=== PATIENT | female | born 1980 | race Caucasian/White ===

== ENCOUNTER 2021-04-08 09:37 | Outpatient (RCR) | payer OTHER, SELFPAY ==
[2021-04-01 10:55] VITALS: BP 100/51; PULSE 66
[2021-04-08 10:07] VITALS: BP 105/54; PULSE 74
== END 2021-05-20 07:54 | disposition home or self-care (01) ==
LOC: ANHOBOP 09:37
PROVIDERS: Visit Provider Student in an Organized Health Care Education/Training Program
DX: O09.513 Supervision of elderly primigravida, third trimester (principal); Z3A.32 32 weeks gestation of pregnancy; Z3A.33 33 weeks gestation of pregnancy
CPT/HCPCS: 59025

== ENCOUNTER 2021-05-15 09:26 | Outpatient (RCR) | payer OTHER, SELFPAY ==
[2021-04-15 10:39] VITALS: BP 120/59; PULSE 72
[2021-04-22 09:41] VITALS: BP 103/2; PULSE 72
[2021-04-29 09:50] VITALS: BP 112/67; PULSE 76
[2021-05-15 10:01] VITALS: BP 117/69; PULSE 84
== END 2021-05-20 07:54 | disposition home or self-care (01) ==
LOC: ANHOBOP 09:26
PROVIDERS: Visit Provider Student in an Organized Health Care Education/Training Program
DX: O09.513 Supervision of elderly primigravida, third trimester (principal); Z3A.34 34 weeks gestation of pregnancy; Z3A.35 35 weeks gestation of pregnancy; Z3A.36 36 weeks gestation of pregnancy; Z3A.38 38 weeks gestation of pregnancy
CPT/HCPCS: 59025

== ENCOUNTER 2021-05-18 07:51 | Outpatient (CLI) | payer OTHER, SELFPAY ==
[2021-05-18 08:05] LABS: Hematocrit 33.2 % (37.0-47.0); Hemoglobin 10.8 g/dL (12.0-15.0)
[2021-05-20 08:37] LABS: Rapid Plasma Reagin Non-Reactive (NonReactive)
[2021-05-20 11:29] LABS: Mean Corpuscular Hemoglobin 24.5 pg (26-34); Mean Corpuscular Volume 84.5 fl (80-100); Mean Platelet Volume 12.1 fl (7.4-10.4); Platelet Count Result 180 k/mm3 (150-375); Red Cell Distribution Width 16.9 % (11.5-14.5); White Blood Count 8.3 K/mm3 (4.5-10.0)
== END 2021-05-18 07:52 | disposition home or self-care (01) ==
LOC: ANHLAB 07:55
PROVIDERS: Visit Provider Student in an Organized Health Care Education/Training Program
DX: Z01.818 Encounter for other preprocedural examination (principal)
CPT/HCPCS: 36415; 85014; 85018; 85027; 86592; 86850; 86900; 86901

== ENCOUNTER 2021-05-20 08:25 | Inpatient (IN) | payer OTHER, SELFPAY ==
[2021-05-20] VITALS (61 sets, daily range): BP systolic 83–130; BP diastolic 34–88; PULSE 42–72; RESP 12–16; TEMP 36.1–36.4; O2SAT 94–99; BMI 40.0
--- NOTE | 2021-05-20 07:28 | PM.IMHP ---
H&P: HPI History of Present Illness Date/Time: 05/20/21 07:28 Chief Complaint: prior intrauterine at term Narrative: 40 yo who presents for repeat section. Pt has had 1 prior and desires repeat. Pt reports a history of wound infection after her last . Her was complicated by a history of GDM with normal GCT in this . also complicated by advanced maternal age. Review of Systems Cardiovascular: Cardiovascular: Denies chest pain, Denies leg edema, Denies palpitations, Denies dyspnea and Denies dyspnea on exertion Respiratory: Respiratory: Denies cough, Denies dyspnea and Denies dyspnea on exertion Gastrointestinal: Gastrointestinal: Denies abdominal pain, Denies constipation, Denies diarrhea, Denies nausea and Denies vomiting Genitourinary: Genitourinary: Denies hematuria, Denies urinary frequency, Denies dysuria, Denies pelvic pain, Denies urinary incontinence and Denies vaginal discharge Neurologic: Reports system reviewed and no additional complaints, except as documented Psychiatric: Psychiatric: Reports no additional psychiatric complaints Endocrine: Endocrine: Denies palpitations [facility] Family History Family History (Updated 05/02/21 @ 12:41 by Trish Becerra RN) Other No pertinent family history Social History Social History Substance use: never Gender identity (if verbalized by the patient): Female Spiritual care concerns: No Meds Home Medications and Allergies Home Medications Medication Instructions Recorded Confirmed Type PNV cmb#95-ferrous fumarate-FA 1 tablet PO DAILY 04/01/21 05/15/21 History [] calcium carbonate [Calcium 600] 600 mg PO DAILY 04/01/21 05/15/21 History ergocalciferol (vitamin D2) 1,250 mcg PO WEEKLY 04/01/21 05/15/21 History [Vitamin D2] ferrous sulfate 325 mg PO DAILY 04/01/21 05/15/21 History Allergies Allergy/AdvReac Type Severity Reaction Status Date / Time Penicillins Allergy Rash Verified 05/15/21 09:44 Exam Const: General: no acute distress Eyes: EOM: EOMs intact bilaterally Neck: Neck: supple Thyroid: thyroid normal Chest: Breast/axilla inspection: normal inspection of the breasts Breast/axilla palpation: normal palpation of the breasts, normal palpation of the axillae and no axillary lymphadenopathy Resp: Effort & Inspection: normal respiratory effort Auscultation: clear to auscultation bilaterally Cardio: Rate: regular rate Rhythm: regular rhythm GI: Inspection: non-distended GI Palp: Yes Soft to palpation, No Tenderness to palpation present (GI) and No Guarding due to palpation present (GI) Auscultation: normal bowel sounds : General: No bladder normal to palpation External Female Exam: normal external appearance Speculum Exam - Vagina: normal vaginal discharge and No vaginal bleeding Speculum Exam - Cervix: nontender Bimanual exam- vagina & uterus: No bladder normal to palpation and No Cervical tenderness present OB/external & speculum: No vaginal bleeding Skin: General skin exam: normal color and no rashes or lesions noted Neuro: Cognition (Neuro): normal cognition Speech: normal speech Extrem: General: normal to inspection and no edema Psych: Mental Status: mental status grossly normal Affect: normal affect Assessment and Plan Assessment and plan (1) Supervision of high risk , unspecified, third trimester: Code(s): O09.93 - Supervision of high risk , unspecified, third trimester Status: Acute Assessment and Plan: 40 yo Rh+ GBS neg plan for repeat (2) History of section complicating : Code(s): O34.219 - Maternal care for unspecified type scar from previous delivery Status: Acute Assessment and Plan: prior x1 h/o wound infection will plan for THEO dressing (3) Advanced maternal age (AMA) in :
--- NOTE | 2021-05-20 09:08 | LDADM ---
This patient, Mone Spencer, was admitted to Labor/Delivery/Recovery 119 on 05/20/21 at 08:25. Plans for labor, pain management and were discussed with patient. Patient/family oriented to hospital policies and general routines including ID bracelet, bed and alarms, visiting hours, pain management, procedures, bathroom and other care routines, personal items, smoking policy, room service/diet and guest tray routines, infant security routines, and visiting hours. Patient/Family are encouraged to report perceived risks to care and to ask questions if they do not understand what they are told or what they should do. See OBIX for further documentation.
--- NOTE | 2021-05-20 10:31 | WPDANESEPPF ---
Anes - Initial Pre Proc Eval Procedure: Operation Date: 05/20/21 12:00 Proposed Procedures p Repeat Section - Cristian Lozano MD Date/Time: 05/20/21 10:31 Surgeon: Cristian Lozano MD Pre Op Diagnosis: C Section Patient Data Age: 40 Gender: F Height: 1.7 m Weight: 116 kg Last Vital Signs Pulse 64 05/20/21 09:01 BP 103/43 L 05/20/21 09:01 Allergies Allergy/AdvReac Type Severity Reaction Status Date / Time Penicillins Allergy Rash Verified 05/15/21 09:44 Home Medications Medication Instructions Recorded Confirmed Type PNV cmb#95-ferrous fumarate-FA 1 tablet PO DAILY 04/01/21 05/15/21 History [] calcium carbonate [Calcium 600] 600 mg PO DAILY 04/01/21 05/15/21 History ergocalciferol (vitamin D2) 1,250 mcg PO WEEKLY 04/01/21 05/15/21 History [Vitamin D2] ferrous sulfate 325 mg PO DAILY 04/01/21 05/15/21 History Patient hx anesthesia problems: none Family hx anesthesia problems: none PMFSH Past Medical History Medical History (Updated 05/20/21 @ 10:31 by Mehdi Spencer MD) Advanced maternal age (AMA) in Obesity Family History Family History (Updated 05/02/21 @ 12:41 by Trish Becerra RN) Other No pertinent family history Social History Social History Smoking status: Never smoker Second hand tobacco smoke exposure: No Substance use: never Gender identity (if verbalized by the patient): Female Spiritual care concerns: No Anes - Eval Final PreProcedure Day of Procedure 05/20/21 10:31 Patient weight: morbidly obese Heart: regular rate and rhythm Lungs: clear to auscultation and normal air movement Airway: Mallampati scale class II Neurological: alert and oriented Last oral intake: >/= 8 hours ASA classification: III Emergent: no Anesthetic plan: proceed Anesthesia type and monitoring: regional spinal Informed Consent: The patient's anesthetic plan and its attendant risks and benefits were discussed with the patient/family/POA. Questions were solicited and answers provided to the satisfaction of the patient/family/POA.
--- NOTE | 2021-05-20 10:38 | WPDHPUPDATE1 ---
History and Physical Update Update Date/Time: 05/20/21 10:38 History and Physical has been reviewed, including an updated exam of the patient. There are NO changes in the patient's condition. Risks, benefits, and alternatives have been discussed and questions answered. Patient agrees to proceed with procedure.
[2021-05-20] MEDS: ceFAZolin 2 GM/D5W 50 ML 2 GM/50 ML BAG IVPB (10:43)
[2021-05-20] MEDS: KETOROLAC 30 MG/ML VIAL (*BKC) IV PUSH (12:00)
--- NOTE | 2021-05-20 12:03 | W.PM.PROC2 ---
Procedure Note - Detailed Date of Procedure 05/20/21 Pre-op Diagnosis prior C Section Post-op Diagnosis same Procedure Performed repeat low transverse section Surgeon Cristian Lozano MD Anesthesia spinal and epidural Description of Procedure The patient was taken to the operating room. A combined spinal epidural anesthesic was administered and found to be adequate at a t-10 level. The patient was placed in a supine position with a slight left lateral tilt. A sheehan catheter was placed with return of clear urine. A Bovie grounding pad was placed. Surgical prep was performed and surgical drapes were placed. A surgical time out was performed. A Pfannenstiel skin incision was then made with the scalpel and carried through to the underlying layer of fascia. The fascia was then incised in the midline and the incision was extended laterally with the Metcalf scissors. The superior aspect of the fascia was then grasped with the Renny clamps, elevated, and the underlying rectus muscles dissected off bluntly and sharply. Attention was then turned to the inferior aspect of this incision which, in a similar fashion, was grasped, tented up with the Renny clamps, and the rectus muscles dissected off both bluntly and sharply. The rectus muscles were then in the midline. The peritoneum was identified and entered bluntly. The peritoneal incision was then extended superiorly and inferiorly with good visualization of the bladder. The vesico-uterine serosa was identified and dissected to create a bladder flap. The bladder blade was reinserted. The uterus was inspected for rotation. A low-transverse uterine incision was made sharply with the scalpel and entry was made into the uterine cavity. An amniotomy was made and copious amounts of clear fluid were noted on return. The uterine incision was extended laterally bluntly. The bladder blade was removed and the fetus was delivered atraumatically. The nose and mouth were suctioned with a bulb syringe. The umbilical cord was clamped twice and cut. The was handed off to the waiting staff. At the time of the delivery, the had good color, tone and grimace. The cried with minimal stimulation. A second segment of umbilical cord was clamped and cut for cord blood gasses. Cord blood was collected for determination of the blood type and for direct Jacobsen. The placenta was delivered spontaneously without difficulty. The placenta appeared grossly normal and complete. The uterus was exteriorized and cleared of all clots and debris. The uterine incision was repaired using 0-monocryl suture in a running fashion. A second layer of 0 Monocryl suture was used in an imbricating fashion to obtain excellent hemostasis and uterine strength. The uterine closure was inspected for hemostasis. The posterior aspect of the uterus and the broad ligaments were inspected and the posterior cul-de-sac cleared of fluid and blood clots. The uterine closure was again inspected and found to be hemostatic. The uterus was returned to the abdominal cavity. The pericolic gutters were inspected and were cleared of all blood clots and debris. The uterine closure was then re inspected to ensure hemostasis as were all subfascial tissues. The peritoneum was closed using 3-0 vicryl in a running fashion. The rectus muscles were re-approximately with interrupted mattress sutures of 0-vicryl. The fascia was reapproximated with 0-vicryl in a running fashion. The subcutaneous tissue was irrigated and hemostasis achieved with electrocautery. It was reapproximated with 3-0 vicryl in a running fashion. The skin was closed with annabelle. A sterile THEO dressing was applied to the wound. The patient tolerated the procedure well. Sponge, lap and needle counts were correct times three. The patient was taken to recovery in stable condition and without anticipated complications. Estimated Blood Loss 480 Drains No Packing No Complications No imm
--- NOTE | 2021-05-20 12:08 | PM.OBPRVD ---
OB - Delivery Note Procedure Procedure: Procedures Operation Date: 05/20/21 10:30 <No data on this case meets the specified criteria> events: Previous Route of delivery: Quantitative Blood Loss (ml): 480 Baby Date of : 05/20/21 Weeks of gestation at delivery: 39 Infant gender: Male Weight (pounds): 7 Weight (ounces): 8 score one minute: 9 score five minutes: 9
[2021-05-20] MEDS: OXYTOCIN 30 UNITS/NS 500 ML 30 UNITS/500 ML BAG 125 UNITS IV CONT (12:32)
[2021-05-20] MEDS: ONDANSETRON INJ 4 MG/2 ML VIAL IV PUSH (14:19)
[2021-05-20] MEDS: DEXTROSE 5%/0.45% SOD CHL 1,000 ML 125 ML IV CONT (17:31)
--- NOTE | 2021-05-20 19:15 | OBPPTRN ---
1427 Patient transferred to post room #290 via stretcher. Support person present. Oriented to unit, room, information board, rooming in, admission packet and security measures. Patient verbalizes understanding.
[2021-05-20] MEDS: ACETAMINOPHEN 325 MG TABLET 650 MG PO (19:55)
[2021-05-21] VITALS: BP 102/59; PULSE 60; RESP 16; TEMP 36.1; O2SAT 99
[2021-05-21 05:47] VITALS: BP 99/50; PULSE 60; RESP 18; TEMP 36.3; O2SAT 97
[2021-05-21 05:59] LABS: Basophils Percent Auto 0.2 % (0.2-1.2); Eosinophils Absolute Auto 0.1 K/mm3 (0-0.3); Eosinophils Percent Auto 0.9 % (0-4.4); Hematocrit 29.8 % (37.0-47.0); Hemoglobin 9.2 g/dL (12.0-15.0); Immature Granulocyte Absolute 0.02 K/mm3 (0.00-0.031); Immature Granulocyte Percent A 0.2 % (0-0.5); Lymphocytes Absolute Auto 1.34 K/mm3 (0.9-3.2); Lymphocytes Percent Auto 15.8 % (18.3-44.2); Mean Corpuscular HGB Conc 30.9 g/dl (32-36); Mean Corpuscular Hemoglobin 24.4 pg (26-34); Mean Platelet Volume 10.8 fl (7.4-10.4); Monocytes Absolute Auto 0.8 K/mm3 (0.1-0.6); Monocytes Percent Auto 9.6 % (2.6-8.5); Neutrophils Absolute Auto 6.2 K/mm3 (1.3-6.7); Neutrophils Percent Auto 73.3 % (45.5-73.1); Platelet Count Result 199 k/mm3 (150-375); Red Blood Count 3.77 M/mm3 (4.2-5.4); Red Cell Distribution Width 16.3 % (11.5-14.5); White Blood Count 8.5 K/mm3 (4.5-10.0)
--- NOTE | 2021-05-21 07:54 | PM.OBPNVD ---
OB - PN: Subj Subjective Date/time seen: 05/21/21 07:55 Interval history: Patient doing well this AM. she is ambulating without difficulty. She is tolerating PO. She reports adequate pain control. Her bleeding is normal and she reports normal lochia. She denies fever, chills, N/V. She has not yet passed flatus. Patient comments: no complaints and pain well controlled; no flatus present OB - PN: Obj Data Labs CBC & Chem 7: 05/21/21 04:59 Labs: Laboratory Results - last 24 hr 05/21/21 04:59 WBC 8.5 RBC 3.77 L Hgb 9.2 L Hct 29.8 L MCV 79.0 L D MCH 24.4 L MCHC 30.9 L RDW 16.3 H Plt Count 199 MPV 10.8 H Immature Gran % (Auto) 0.2 Neut % (Auto) 73.3 H Lymph % (Auto) 15.8 L [place] % (Auto) 9.6 H Eos % (Auto) 0.9 Baso % (Auto) 0.2 Lymph # (Auto) 1.34 [place] # (Auto) 0.8 H Eos # (Auto) 0.1 Baso # (Auto) 0.0 Abs Immat Gran (auto) 0.02 Absolute Neuts (auto) 6.2 Absolute Nucleated RBC 0.0 Nucleated RBC % 0.0 OB - PN A/P Plan day: 1 Plan: routine care Comments: patient doing well this AM voiding spontaneously tolerating PO H/H 9. continue routine PP care plan for infant circumcision today, risks, benefits, alternatives discussed. consent obtained Time Spent With Patient Time: Total time spent is greater than 50% in coordination of care (as documented) at patient's floor/unit and/or counseling patient: Time with patient: less than 15 minutes Review of Systems Constitutional: Constitutional: Reports no additional constitutional complaints Cardiovascular: Cardiovascular: Reports no additional cardiovascular complaints Respiratory: Respiratory: Reports no additional respiratory complaints Gastrointestinal: Gastrointestinal: Reports no additional gastrointestinal complaints Genitourinary: Genitourinary: Reports no additional female genitourinary complaints Exam Const: General: comfortable and no acute distress Resp: Effort & Inspection: normal respiratory effort Auscultation: clear to auscultation bilaterally Cardio: Rate: regular rate GI: GI Palp: Yes Soft to palpation and Yes Tenderness to palpation present (GI) (appropriately tender around incision ) Auscultation: normal bowel sounds Other: fundus firm and below umbilicus Incision C/D/I Urinary Catheter: Urinary Catheter: urine clear Psych: Appearance: grossly normal Mental Status: mental status grossly normal Affect: normal affect
[2021-05-21 08:35] VITALS: BP 101/56; PULSE 56; RESP 16; TEMP 37; O2SAT 98
[2021-05-21] MEDS: DOCUSATE SODIUM 100 MG CAPSULE PO ×2 (08:52→15:09)
[2021-05-21] MEDS: POLYSACCHARIDE IRON COMPLEX 150 MG CAPSULE PO ×2 (08:52→15:08)
[2021-05-21] MEDS: MULTIVIT/MIN/PREN/FOL AC/IRON TABLET 1 TAB PO (08:52)
--- NOTE | 2021-05-21 09:21 | WPDANLDNPN2 ---
Anes-Prog Note L&D-Neuraxial Date/Time: 05/21/21 09:21 Neuraxial medications: intrathecal PF morphine Opiod-related complaints: none Patient feedback: Patient satisfied with post-operative pain management.
--- NOTE | 2021-05-21 09:21 | WPDANLDPN2 ---
Anes-Prog Note L&D Date/Time: 05/21/21 09:21 Comfortable throughout: section Neuraxial method: spinal Epidural/Spinal procedure site: clean & non-tender Neuro status: Neuro function grossly intact. Cardiovascular status: normal Respiratory status: normal Airway patency: baseline Mental status: baseline Post-Op hydration status: normal Vital Signs: Last Vital Signs Temp 36.3 C L 05/21/21 05:47 Pulse 60 05/21/21 05:47 Resp 18 05/21/21 05:47 BP 99/50 L 05/21/21 05:47 Pulse Ox 97 05/21/21 05:47 Pain score (VAS): 0 I/O: Intake & Output 05/20/21 05/21/21 05/21/21 23:59 07:59 15:59 Intake Total 460 Output Total 1050 Balance -590 Post-procedural complaints: none Patient feedback: Patient satisfied with anesthetic care.
--- NOTE | 2021-05-21 10:10 | PC.NURSE ---
Mother called out for assist with feeding, reporting was sleepy. Mother states has been waking eagerly. Re viewed circumcision may make sleepy. is able to freely thrust tongue past gum ridge and flange both lips. Skin is intact on both nipples, no redness and bruising noted. Reviewed infant feeding cues, frequencies, duration of feedings, feeding elimination flow sheet, and signs of adequate intake. Demonstrated stimulation techniques to wake for feeding. Assisted with to breast. Reviewed positioning/alignment in cross cradle, holding breast in ?U? hold and guided asymmetrical latch on. Discussed rational for each. Infant able to latch correctly. Reviewed signs of a correct latch, effective nursing and suck swallow ratio. nursed eagerly, with steady draws and frequent swallowing noted. Reviewed the difference of effective vs ineffective nursing. Suggested mother stimulate while feeding to increase stimulation, increase intake and to assist with maintaining deep latch. Infant was able to maintain latch without discomfort to mother. Demonstrated how to adjust latch more deeply while feeding if needed. . Nipple care reviewed of lanolin after feedings, warm compresses as needed.
--- NOTE | 2021-05-21 12:40 | PC.NURSE ---
Consult with pt., mother states infant has been for 2010 minutes. Reviewed feeding cues, frequencies, duration of feedings, feeding elimination flow sheet, and signs of adequate intake. Mother has in cradle position, latched deeply denying discomfort. Reviewed signs of a correct latch, effective nursing and suck swallow ratio. Infant nursed eagerly, with steady draws and frequent swallowing noted. Reviewed the difference of effective vs ineffective nursing. Suggested mother stimulate while feeding to increase stimulation, increase intake and to assist with maintaining deep latch. Infant was able to maintain latch without discomfort to mother. Demonstrated how to adjust latch more deeply while feeding. Nipple care reviewed of lanolin after feedings.
[2021-05-21] MEDS: IBUPROFEN 600 MG TABLET PO (15:08)
[2021-05-21 20:00] VITALS: BP 108/61; PULSE 80; RESP 18; TEMP 37.1; O2SAT 96
[2021-05-22] MEDS: ACETAMINOPHEN 325 MG TABLET 650 MG PO ×2 (03:26→09:36)
--- NOTE | 2021-05-22 07:32 | PM.OBDSVD ---
DS: Admitting Diagnosis Admitting Diagnosis prior section OB - DS: Summary OB Procedures : None OB Procedures Intrapartum: OB Procedures: : None Peripartum Data Infant Delivery Method: Section Procedures: Procedures Operation Date: 05/20/21 10:30 Actual Procedure Side Surgeon p Section Bilateral Cristian Lozano MD complications: none Status at Discharge Functional status at discharge: independent ambulation Overall status at discharge: patient is progressing back to baseline Time Spent with Patient Time attestation: Total time spent providing and/or coordinating discharge services: Time spent: Less than 30 minutes Exam Const: General: comfortable and no acute distress Resp: Effort & Inspection: normal respiratory effort Auscultation: clear to auscultation bilaterally Cardio: Rate: regular rate GI: Inspection: non-distended GI Palp: Yes Soft to palpation, No Firmness to palpation present (GI), Yes Tenderness to palpation present (GI) (mild tenderness over incision ) and No Guarding due to palpation present (GI) Auscultation: normal bowel sounds Psych: Appearance: grossly normal Mental Status: mental status grossly normal Discharge Plan Discharge Discharging Clinician: patience Patient Disposition: Home, Self-Care Activity: as tolerated and pelvic rest Diet: regular Discharge Instructions: call or return for temperature >100.4, bleeding >2 pads/hr for 2 hrs, pain not controlled with medications, signs/symptoms of mastitis Patient Instructions: Antibiotic Form, (DC) Stand Alone Forms: General Discharge Information Follow-up/Referrals: Cristian Lozano MD [Physician] - 1 Week Discharge Medications: New hydrocodone-acetaminophen 5-325 mg tablet 1 tablet PO Q6H PRN (Reason: pain) Qty: 28 RF: 0 acetaminophen [Mapap (acetaminophen)] 325 mg Tablet 650 mg PO Q6H PRN (Reason: Mild Pain (1-3)) Qty: 30 RF: 0 ibuprofen 600 mg Tablet 600 mg PO Q6H PRN (Reason: Cramping) Qty: 30 RF: 0 Continued calcium carbonate [Calcium 600] 600 mg calcium (1,500 mg) Tablet 600 mg PO DAILY RF: 0 ferrous sulfate 325 mg (65 mg iron) Tablet 325 mg PO DAILY RF: 0 ergocalciferol (vitamin D2) [Vitamin D2] 1,250 mcg (50,000 unit) Capsule 1,250 mcg PO WEEKLY RF: 0 PNV cmb#95-ferrous fumarate-FA [] 28 mg iron- 800 mcg Tablet 1 tablet PO DAILY RF: 0 Date of admission: 05/20/21 08:25 Primary Care Provider: PHYSICIAN,GERONTOLOGICAL NURSE PRACTITIONER Admitting Provider: Cristian Lozano Attending physician on admission: Cristian Lozano Condition: Stable
[2021-05-22 07:55] VITALS: PULSE 80; RESP 18; O2SAT 96
[2021-05-22 08:00] VITALS: BP 114/68; PULSE 58; RESP 16; TEMP 36.9; O2SAT 99
--- NOTE | 2021-05-22 09:00 | PC.NURSE ---
Observed mother is able to independently latch with appropriate positioning/alignment. She denies any nipple discomfort, is feeding as required and waking infant to feed if needed. has had at least 8 effective feedings in the past 24 hours, and is currently meeting outcomes for weight, output, jaundice and feeding frequencies. Mother states she feels confident to continue effective at home. Reviewed transition to breast milk, signs of adequate intake, and engorgement/relief. Instructed to call ICP if intake/output less than required. Reviewed regular medications mother is taking. Information provided per Marianela. Reviewed community resources on the [facility] website and in the Mom/Baby guide. Information on outpatient services provided. Mother has no further questions at this time.
[2021-05-22] MEDS: POLYSACCHARIDE IRON COMPLEX 150 MG CAPSULE PO (09:37)
[2021-05-22] MEDS: DOCUSATE SODIUM 100 MG CAPSULE PO (09:37)
[2021-05-22] MEDS: MULTIVIT/MIN/PREN/FOL AC/IRON TABLET 1 TAB PO (09:37)
--- NOTE | 2021-05-22 12:11 | PC.NURSE ---
6951-Patient viewed the discharge video Mother & Baby Care, The First Two Weeks . Patient was given the opportunity and encouraged to ask questions. Patient verbalized understanding of information shared and has been given the mother/baby guide for home reference.
[2021-05-24 11:38] VITALS: BP 127/70; PULSE 67; RESP 20; TEMP 37.4; O2SAT 99
== END 2021-05-22 11:35 | disposition home or self-care (01) | DRG 788 ==
LOC: ANHLDR 08:29 → ANHOB2 14:35
PROVIDERS: Admitting Provider Student in an Organized Health Care Education/Training Program; Visit Provider Student in an Organized Health Care Education/Training Program
PROC: 10D00Z1 Extraction of Products of Conception, Low, Open Approach (ICD-10-PCS; CPT 59514; principal; 2021-05-20 12:00)
DX: O34.211 Maternal care for low transverse scar from previous cesarean delivery (principal); Z37.0 Single live birth; Z3A.39 39 weeks gestation of pregnancy; O24.429 Gestational diabetes mellitus in childbirth, unspecified control; O99.214 Obesity complicating childbirth; E66.01 Morbid (severe) obesity due to excess calories
CPT/HCPCS: 36415; 85014; 85018; 85025; 85027; 86592; 86850; 86900; 86901; A9270; J0131; J0456; J0690; J1885; J2274; J2370; J2405; J2590

== ENCOUNTER 2023-10-06 12:24 | Emergency (ER) | payer BC, SELFPAY ==
--- NOTE | ~2023-10-06 | XR_ITS ---
XR finger 5th LT min 2V DATE: 10/06/2023 12:51 INDICATION: Jammed left fifth finger last night. Swelling. TECHNIQUE: 4 views COMPARISON: None FINDINGS: No fracture or dislocation, periosteal reaction or bone destruction. The joint spaces are p reserved. No remaining soft tissue foreign body or subcutaneous emphysema. IMPRESSION: Negative Reviewed, dictated and finalized at location L. WASHER IMPRESSION: Negative
--- NOTE | 2023-10-06 12:26 | ED.UPPEXIN ---
HPI - Extremity Injury (Upper) General Chief Complaint: Extremity Injury, Upper Stated Complaint: Injured Finger Time Seen by Provider: 10/06/23 12:59 Source: patient and RN notes reviewed Mode of arrival: ambulatory Limitations: no limitations History of Present Illness HPI narrative: 43-year-old female presents concern for pain and injury to the 5th digit of the left hand. Reports she was playing with her kids yesterday when she felt a sudden pain. Reports since then she has had mid digit pain, swelling, decreased flexion. Reports she has used tape which has helped MD complaint: injury to: left and finger Related Data Home Medications Medication Instructions Recorded Confirmed calcium carbonate 600 mg calcium 600 mg PO DAILY 04/01/21 05/15/21 (1,500 mg) tablet (Calcium) ergocalciferol (vitamin D2) 1,250 1,250 mcg PO WEEKLY 04/01/21 05/15/21 mcg (50,000 unit) capsule (Vitamin D2) ferrous sulfate 325 mg (65 mg 325 mg PO DAILY 04/01/21 05/15/21 iron) tablet vit no.95-ferrous 1 tablet PO DAILY 04/01/21 05/15/21 fumarate 28 mg-folic acid 800 mcg tablet () Allergies Allergy/AdvReac Type Severity Reaction Status Date / Time Penicillins Allergy Rash Verified 05/15/21 09:44 Review of Systems Review of Systems: CONSTITUTIONAL: Denies malaise, chills, sweats, or fever. SKIN: Denies rash or itching, open skin, laceration, abrasion, redness, warmth MUSCULOSKELETAL: Reports left 5th digit pain and swelling NEUROLOGIC: Denies numbness, weakness All systems reviewed & are unremarkable except as noted in HPI and below PMFSH Past Medical History Medical History (Updated 10/06/23 @ 13:11 by Luda Salter NP) Advanced maternal age (AMA) in Obesity Family History Family History (Updated 05/02/21 @ 12:41 by Trish Becerra RN) Other No pertinent family history Social History Social History Smoking status: Never smoker Second hand tobacco smoke exposure: No Substance use: never Gender identity (if verbalized by the patient): Female Spiritual care concerns: No Comments At time of signature, agree with nursing past medical, surgical, social and family history. There is no relevant family history pertinent to the presenting complaint Exam Narrative: GENERAL: Well-appearing, well-nourished, and in no acute distress. HEAD: Normocephalic EYES: PERRLA, conjunctivae clear NECK: Supple. CHEST: Speaks in full sentences. No respiratory distress. HEART: Regular rate and rhythm. Normal and equal peripheral pulses. EXTREMITIES: 5th digit left hand has grossly normal strength and sensation. Limited range of motion with flexion. No clubbing, cyanosis, or edema noted. Mid tenderness. Skin intact. Normal digital cascade with flexion of fingers, median, ulnar and radial nerve intact. Normal sensation of each side of finger. No scissoring. Normal thumb opposition. Good capillary refill and radial pulse. Distal capillary refill less than 3 seconds. Patient is right/left hand dominant SKIN: Warn, dry, intact, pink. No rash NEURO: Alert and oriented x3. PSYCH: Normal mood and affect Course Course Emergency Course: Patient is aware of diagnosis, understands and agrees to treatment plan. Anticipatory guidance given. Patient agrees to follow-up as directed and is aware of reasons to seek care at the emergency department. Portions of this record may have been created with voice recognition software Level of Care: Express Care Visit Vital Signs Vital signs: Reviewed. MDM - Extremity Injury (Upper) MDM Narrative Medical decision making narrative: Patients injury and pain is consistent with musculoskeletal etiology. No signs of neurological or vascular compromise on exam. Compartments and tissues are soft without signs of compartment syndrome. Pain is felt appropriate for further evaluation on an outpatient basis. Imaging Data My impression: Images reviewed,
[2023-10-06 12:37] VITALS: BP 112/85; PULSE 75; RESP 15; TEMP 36.6; O2SAT 100
== END 2023-10-06 13:14 | disposition home or self-care (01) ==
PROVIDERS: Emergency Provider Nurse Practitioner
DX: S63.617A Unspecified sprain of left little finger, initial encounter (principal); X58.XXXA Exposure to other specified factors, initial encounter
CPT/HCPCS: 29130; 73140; 99213; G0463

== ENCOUNTER 2024-01-06 18:13 | Emergency (ER) | payer BC, SELFPAY ==
--- NOTE | 2024-01-06 18:16 | ED.URI ---
HPI - URI/Sore Throat General Chief Complaint: Upper Respiratory Infection Stated Complaint: COUGH/FEVER/EARACHE/CHILLS/SORE THROAT Time Seen by Provider: 01/06/24 18:16 Source: patient Mode of arrival: ambulatory Limitations: no limitations History of Present Illness HPI Narrative: Mone is a 43-year-old female patient presenting to the clinic today with complaints of cough, fever, earache, chills, body aches, shortness of breath on exertion (going up stairs), diarrhea, and sore throat since Thursday. She reports fever was as high as 100.5 ? F. elicited complaint: fever, cough, sore throat, rhinorrhea and nasal congestion Related Data Home Medications Medication Instructions Recorded Confirmed calcium carbonate 600 mg calcium 600 mg PO DAILY 04/01/21 01/06/24 (1,500 mg) tablet (Calcium) ergocalciferol (vitamin D2) 1,250 1,250 mcg PO WEEKLY 04/01/21 01/06/24 mcg (50,000 unit) capsule (Vitamin D2) ferrous sulfate 325 mg (65 mg 325 mg PO DAILY 04/01/21 01/06/24 iron) tablet Allergies Allergy/AdvReac Type Severity Reaction Status Date / Time Penicillins Allergy Rash Verified 01/06/24 18:25 Review of Systems Review of Systems: Pertinent positives per HPI. Patient denies any rash, headache, visual changes, dizziness,chest pain, palpitations, nausea, vomiting, constipation, abdominal pain, or any urinary issues. PMFSH Past Medical History Medical History (Updated 01/06/24 @ 18:45 by Melo Juárez APRN) Advanced maternal age (AMA) in Obesity Family History Family History (Updated 05/02/21 @ 12:41 by Trish Becerra RN) Other No pertinent family history Social History Social History Smoking status: Never smoker Second hand tobacco smoke exposure: No Substance use: never Gender identity (if verbalized by the patient): Female Spiritual care concerns: No Comments At the time of my signature, I reviewed and agree with the nursing past medical, surgical, social, and family history. There is no relevant family history pertinent to the patient complaint. Exam Narrative: General: Well-developed, well nourished, in no apparent distress Head: Normocephalic, atraumatic Eyes: Pupils equally round and reactive to light bilaterally, EOM intact, sclera and conjunctive clear, no discharge, lids normal Ears: TMs intact and clear, ear canals clear, no drainage, grossly hearing normal. Nose: Nares patent, no discharge, no inflammation, no sinus tenderness. Mouth: Oral pharynx without lesions or masses, good dentition, MMM. Neck: Supple, trachea midline, no enlargement of anterior or posterior cervical nodes, no thyroid masses or goiter palpable. Cardio: Regular rate and rhythm, s1 and s2 normal, no murmur appreciated. Resp: Clear to auscultation bilaterally, no rhonchi, rales, wheezing or rubs Course Course Emergency Course: Portions of this record may have been created with voice recognition software. Level of Care: Express Care Visit Vital Signs Vital signs: Vital signs reviewed MDM - URI/Sore Throat MDM Narrative Medical decision making narrative: At the time of visit patient is resting comfortably on the exam table. Patient appears to be nontoxic. Labs: COVID, flu, and strep test was negative in the clinic today. We will send strep for culture Plan: I suspect patient has URI/pharyngitis/viral syndrome. Supportive measures were discussed with the patient and they voiced understanding discharge instructions and agrees to treatment plan. Return precautions reviewed Differential Diagnosis Differential diagnosis: Likely upper respiratory infection, otitis media, sinusitis, viral infection, bronchitis, influenza, pharyngitis and other (COVID) Discharge Plan Discharge Clinical Impression: Acute viral syndrome URI (upper respiratory infection) Qualifiers: URI type: unspecified URI Qualified Code(s): J06.9 - Acute upper respiratory infection,
[2024-01-06 18:19] VITALS: BP 126/66; PULSE 89; RESP 16; TEMP 37.6; O2SAT 100
== END 2024-01-06 18:47 | disposition home or self-care (01) ==
PROVIDERS: Emergency Provider Nurse Practitioner Family
DX: B34.9 Viral infection, unspecified (principal); J06.9 Acute upper respiratory infection, unspecified; J02.9 Acute pharyngitis, unspecified; Z20.822 Contact with and (suspected) exposure to COVID-19; E66.9 Obesity, unspecified; Z68.37 Body mass index [BMI] 37.0-37.9, adult
CPT/HCPCS: 87081; 87426; 87804; 87880; 99213; G0463

== ENCOUNTER 2025-05-09 14:16 | Outpatient (CLI) | payer BC, SELFPAY ==
--- NOTE | ~2025-05-09 | MM_ITS ---
EXAMINATION: MM screening jannet BI w rebekah HISTORY: Screening TECHNIQUE: Craniocaudal and mediolateral oblique 3-D tomosynthesis images were obtained and synthetic 2-D images were generated. CAD analysis was submitted and interpreted. COMPARISON: Baseline. BREAST PARENCHYMAL COMPOSITION: There are scattered areas of fibroglandular density. FINDINGS: There is no evidence of suspicious mass, calcification, or architectural distortion to sug gest malignancy in either breast. IMPRESSION: 1. No mammographic evidence of malignancy. 2. Recommend routine screening mammography in one year. BI-RADS Category 1: Negative Reviewed, dictated and finalized at location B.
== END 2025-05-09 14:17 | disposition home or self-care (01) ==
LOC: ANHIMG 14:18
PROVIDERS: Visit Provider Obstetrics & Gynecology
DX: Z12.31 Encounter for screening mammogram for malignant neoplasm of breast (principal)
CPT/HCPCS: 77063; 77067

== ENCOUNTER 2025-08-25 12:17 | Emergency (ER) | payer BC, SELFPAY ==
[2025-08-25] VITALS (18 sets, daily range): BP systolic 100–136; BP diastolic 48–81; PULSE 41–97; RESP 13–25; TEMP 36.6–36.9; O2SAT 97–100
--- NOTE | ~2025-08-25 | XR_ITS ---
EXAMINATION: XR chest 1V portable COMPARISON: No comparisons available. HISTORY: syncope FINDINGS: The lungs are clear, no effusion. No pneumothorax. Heart is normal size. Mediastinal and hilar contours are within normal limits. Bony thorax no acute abnormality. Miscellaneous: None Impression: No acute cardiopulmonary abnormality. Reviewed, dictated and finalized at location P. MS ADJUSTOR Impression: No acute cardiopulmonary abnormality.
--- OUTSIDE RECORDS SUMMARY | 2025-08-25 07:30 | XMS_ITS | Encounter Summary ---
Author Organization [facility] Healthcare Address [address] [place] [address] Care Team Providers Care Signal Maintainer Helper Name Role Phone Linette Cummings MD Primary Care Provider [phone] Reason for Visit * Reason Comments Flu Symptoms Spent all night Wedn esday night heaving, she now has cold sweats, left ear pain, very tired, unknown fever. Encounter Details Date Type Department Care Team (Late Contact Info) Description 08/25/2025 7:30 AM COMPOUNDING ASSISTANT Telemedicine [facility] Primary Care at [address] [address] Linette Cummings MD [address] [place] [address] [address] [place] [address] Upper respiratory infection, viral (Primary Dx) Social History Tobacco Use Types Packs/Day Years Used Date Smoking Tobacco: Never Smokeless Tobacco: Never Tobacco Cessation:Counseling Given: Not Answered Alcohol Use Standard Drinks/Week Comments Yes 0 (1 standard drink = 0.6 oz pur e alcohol) PHQ-2 Answer Date Recorded PHQ-2 Total Score (If total score is 3 or more points, staff should administer the PHQ-9) 0 08/23/2025 PHQ-9 Answer Date Recorded PHQ-9 Total Score 0 08/23/2025 AUDIT-C Answer Date Recorded Q1: How often do you have a drink containing alc ohol? Monthly or less 07/21/2025 Q2: How many drinks containi ng alcohol do you have on a typical day when you are drinking? 1 or 2 07/21/2025 Q3: How often do you have si x or more drinks on one occasion? Never 07/21/2025 Personal Safety Answer Date Recorded Have you ever been in or are you currently in a harmful physical or emotional relationship or is someone making you feel afraid or unsafe? Denies 07/21/2025 Comments Unknown Sex and Gender Information Value Date Recorded Sex Assigned at Not on file Legal Sex Female 11:30 AM CDT Gender Identity Not on file Sexual Orientation Not on file documented as of this encounter Last Filed Vital Signs Vital Sign Reading Time Taken Comments Blood Pressure - - Pulse - - Temperature - - Respiratory Rate - - Oxygen Saturation - - Inhaled Oxygen Concentration - - Weight 104.8 kg (231 lb) 08/25/2025 7:27 AM COMPOUNDING ASSISTANT Height 170.2 cm (5' 7) 08/25/2025 7:27 AM COMPOUNDING ASSISTANT Body Mass Index 36.18 08/25/2025 7:27 AM COMPOUNDING ASSISTANT documented in this encounter Progress Notes * Linette Cummings MD - 08/25/2025 7:30 AM CST Images from the original note were not included. Subjective/Objective Patient ID: Mone Spencer is a 44 y.o. female. Chief Complaint Chief Complaint Patient presents with Flu Symptoms Spent all night Thursday night heaving, she now has cold sweats, left ear pain, very tired, unknown fever. This was a telemedicine visit with Mone Spencer alone which took place via real-time video connection. During the visit, I was located in the office and the patient was located at work in the state [facility]. The patient visit started at 7:30 AM and ended at 7:44 AM. My total encounter time on 08/25/2025 was 14 minutes which was spent in the activities documented in the note. This includes time spent prior to the visit and after the visit in direct care of the patient. This time does not include time spent in any separately reportable services. I have explained the option of participating in a telemedicine visit to the patient. After being given an opportunity to ask questions about and discuss this type of visit, the patient verbally consented to proceeding with the telemedicine visit. The patient understands that this service replaces an office visit and they may be billed and/or responsible for any applicable copayments. A guest was not included in this video visit. HPI Mone is a 44 yo female with complaint of worsening flu like symptoms. Her symptoms started on Thursday and progressively getting worse. On Thursday patient reported tested for influenza and COVID yayolts came back negative. Yesterday patient reports unable to keep food or fluid down but today she is able to sip on apple juice and sprite. Patient reports chills, body aches, dry heaving, left ear pain, fatigue and ensure fever. Patient reports no sick contacts around her. Past Medical History: Diagnosis Date History of chicken pox PONV (postoperative nausea and vomiting) Past Surgical History: Procedure Laterality Date SECTION 2019 SECTION 2020 SPINAL FUSION 2018 Outpatient Encounter Medications as of 08/25/2025 Medication Sig Dispense Refill ondansetron ODT (ZOFRAN-ODT) 8 mg disintegrating tablet Take 1 tablet (8 mg total) by mouth every 12 (twelve) hours as needed for nausea or vomiting for up to 14 days 28 tablet 0 ferrous sulfate 325 mg (65 mg of elemental iron) tablet Take 1 tablet (325 mg total) by mouth dailywith breakfast (Patient not taking: Reported on 08/25/2025) 30 tablet 11 multivitamin tablet Take 1 tablet by mouth (Patient not taking: Reported on 08/25/2025) No facility-administered encounter medications on file as of 08/25/2025. Allergies as of 08/25/2025 - Reviewed 08/25/2025 Allergen Reaction Noted Penicillins Rash 07/30/2015 Social History Tobacco Use Smoking status: Never Smokeless tobacco: Never Substance and Sexual Activity Drug use: Never Sexual activity: Yes Partners: Male Alcohol Use: Not At Risk (07/21/2025) AUDIT-C Frequency of Alcohol Consumption: Monthly or less Average Number of Drinks: 1 or 2 Frequency of Binge Drinking: Never ROS negative other that what is noted in HPI. Ht 170.2 cm (5' 7) Wt 104.8 kg (231 lb) BMI 36.18 kg/m?? Physical Exam Video visit Assessment & Plan Upper respiratory infection, viral Acute, ongoing. On Thursday COVID and flu tests are negative Zofran not providing relief of nausea. Discussed with patient that antibiotics are not indicated. Educate patient on self-limited nature of URI and lasting up to 2 weeks. Recommended good hand hygiene, proper hydration and rest. Recommend Tylenol/ibuprofen as needed for discomfort Follow-up as needed. Linette Cummings MD Family Medicine [facility] Primary Care 08/25/2025 OUNDING ASSISTANT documented in this encounter Plan of Treatment Not on file documented as of this encounter Visit Diagnoses Diagnosis Upper respiratory infection, viral- Primary documented in this encounter Care Teams Signal Maintainer Helper Relationship Specialty Start Date End Date Linette Cummings MD [id number] [address] PCP - General Family Medicine 07/04/25 documented as of this encounter
--- OUTSIDE RECORDS SUMMARY | 2025-08-25 07:30 | XMS_ITS | Encounter Summary ---
Author Organization [facility] Healthcare Address [address] [place] [address] Care Team Providers Care Content Designer Name Role Phone Linette Cummings MD Primary Care Provider [phone] Reason for Visit * Reason Comments Flu Symptoms Spent all night Wedn esday night heaving, she now has cold sweats, left ear pain, very tired, unknown fever. Encounter Details Date Type Department Care Team (Late Contact Info) Description 08/25/2025 7:30 AM INSTRUMENTATION ENGINEER Telemedicine [facility] Primary Care at [address] [address] Linette Cummings MD [address] [place] [address] [address] [place] [address] Upper respiratory infection, viral (Primary [...] 104.8 kg (231 lb) 08/25/2025 7:27 AM INSTRUMENTATION ENGINEER Height 170.2 cm (5' 7) 08/25/2025 7:27 AM INSTRUMENTATION ENGINEER Body Mass Index 36.18 08/25/2025 7:27 AM INSTRUMENTATION ENGINEER documented in this encounter Progress Notes * [...] was located at work in the state [facility]. The patient visit started at 7:30 AM [...] as needed. Linette Cummings MD Family Medicine [facility] Primary Care 08/25/2025 RUMENTATION ENGINEER documented in this encounter Plan of Treatment Not on file documented as of this encounter Visit Diagnoses Diagnosis Upper respiratory infection, viral- Primary documented in this encounter Care Teams Content Designer Relationship Specialty Start Date End Date Linette Cummings MD [address] [address] PCP - General Family Medicine 07/04/25 documented as of this encounter
--- OUTSIDE RECORDS SUMMARY | 2025-08-25 12:20 | XMS_ITS | Encounter Summary ---
Author Organization [facility] Healthcare Address [address] [place] [address] Care Team Providers Care Track Announcer Name Role Phone Linette Cummings MD Primary Care Provider [phone] Encounter Details Date Type Department Care Team (Late st Contact Info) Description 07/10/2025 Results Follow-Up [facility] Primary Care at [address] [address] Linette Cummings MD [address] [place] [address] [address] [place] [address] Iron profile w/ IBC, Folate, Vitamin B12 Social History Tobacco Use Types Packs/Day Years Used Date Smoking Tobacco: Never Smokeless Tobacco: Never Alcohol Use Standard Drinks/Week Comments Yes 0 (1 standard drink = 0.6 oz pur e alcohol) PHQ-2 Answer Date Recorded PHQ-2 Total Score (If total score is 3 or more points, staff should administer the PHQ-9) 0 07/04/2025 PHQ-9 Answer Date Recorded PHQ-9 Total Score 0 07/04/2025 AUDIT-C Answer Date Recorded Q1: How often do you have a drink containing alc ohol? Monthly or less 07/04/2025 Q2: How many drinks containi ng alcohol do you have on a typical day when you are drinking? 1 or 2 07/04/2025 Q3: How often do you have si x or more drinks on one occasion? Never 07/04/2025 Comments Unknown Sex and Gender Information Value Date Recorded Sex Assigned at Not on file Legal Sex Female 11:30 AM CDT Gender Identity Not on file Sexual Orientation Not on file documented as of this encounter Ordered Prescriptions Prescription Sig Dispense Quantity Refills Last Filled Start Date End Date ferrous sulfate 325 mg (65 mg of elemental iron) tabletIndications: Iron Deficiency Anemia Take 1 tablet (325 mg total) by mouth daily with breakfast 30 tablet 11 07/10/2025 documented in this encounter Plan of Treatment Not on file documented as of this encounter Visit Diagnoses Not on filedocumented in this encounter Care Teams Track Announcer Relationship Specialty Start Date End Date Linette Cummings MD [address] [address] PCP - General Family Medicine 07/04/25 documented as of this encounter
--- OUTSIDE RECORDS SUMMARY | 2025-08-25 12:20 | XMS_ITS | Clinical Summary ---
Author Organization [address] Address [address] [place] [id number] Care Team Providers Care Sod Farmer Name Role Phone Linette Cummings MD Primary Care Provider [phone] Allergies Active Allergy Reactions Criticality Noted Date Comments Penicillins Rash Medium 07/30/2015 Medications multivitamin tabletIndications: Vitamin Deficiency Prevention Take 1 tablet by mouth Active ferrous sulfate 325 mg (65 mg of elemental iron) tabletIndications: Iron Deficiency Anemia Take 1 tablet (325 mg total) by mouth daily with breakfast 30 tablet 11 07/10/20 25 026 Active Additional Information Patient not taking.Reported on 08/25/2025 ondansetron ODT (ZOFRAN-ODT) 8 mg disintegrating tabletIndications: Nausea Take 1 tablet (8 mg total) by mouth every 12 (twelve) hours as needed for nausea or vomiting for up to 14 days 28 tablet 08/23/20 25 025 Active ondansetron (ZOFRAN) 4 mg tabletIndications: Nausea and vomiting, unspecified vomiting type Take 1 tablet (4 mg) total 30 minutes before starting colonoscopy prep. Use the 2nd tablet as needed for nausea and vomiting. 2 tablet 07/04/20 25 025 Discontin ued(Thera py completed ) Active Problems No known active problems Resolved Problems Problem Noted Date Diagnosed Date Resolved Date Encounter for screening colonoscopy 07/04/2025 08/23/2025 Encounters Date Type Department Care Team Description 08/25/2025 7:30 AM REGISTERED NURSE MIDWIFE Telemedicine [facility] Primary Care at [address] [phone] Linette Cummings MD Upper respiratory infection, viral (Primary Dx) 08/23/2025 7:30 AM REGISTERED NURSE MIDWIFE Office Visit [facility] Primary Care at [address] [phone] Linette Cummings MD Nausea and vomiting, unspecified vomiting type (Primary Dx); Class 2 obesity due to excess calories without serious comorbidity with body mass index (BMI) of 36.0 to 36.9 in adult 07/21/2025 9:30 AM CDT - 07/21/2025 10:00 AM CDT Surgery [address] [address] Andrew Avila MD [facility] 07/21/2025 9:22 AM CDT Anesthesia Event [address] [address] Andrew Avila MD Fitterer, Morgan Shelly [facility] 07/21/2025 8:17 AM CDT - 07/21/2025 10:25 AM CDT Hospital Encounter [address] [address] Andrew Avila MD Discharge Disposition: Discharge to home or self care 07/10/2025 Results Follow-Up [facility] Primary Care at [address] [phone] Linette Cummings MD Iron profile w/ IBC, Folate, Vitamin B12 07/07/2025 7:50 AM CDT Lab [address] [address] Anemia, unspecified type 07/06/2025 Results Follow-Up [facility] Primary Care at [address] [phone] Linette Cummings MD Comprehensive metabolic panel, Lipid panel, Hemoglobin A1c, Additional followed-up results: 8 07/04/2025 8:10 AM CDT Lab [address] [address] Annual physical exam; Need for hepatitis B screening test; Need for hepatitis C screening test 07/04/2025 7:30 AM CDT Office Visit [facility] Primary Care at [address] [phone] Linette Cummings MD Annual physical exam (Primary Dx); Need for hepatitis C screening test; Need for hepatitis B screening test; Colon cancer screening 07/04/2025 Orders Only [facility] Gastroenterology at [address] [place] [address] Andrew Avila MD Nausea and vomiting, unspecified vomiting type (Primary Dx); Encounter for screening colonoscopy 07/04/2025 Telephone [facility] Primary Care at [address] [phone] Herbert Obrien CNA from Last 3 Months Immunizations Immunization Administration Dates Next Due Influenza, Quadrivalent, Spl it, Preservative Free, Intramuscular 09/30/2021,08/03/2020 Influenza, Unspecified 08/23/2025(Deferr ed: Patient Refused),07/05/2024(Deferred: Patient Refused) Tdap 03/06/2021 Surgical History Surgery Date Site/Laterality Comments SECTION 10/05/2019 - 10/04/2020 SPINAL FUSION 10/05/2018 - 10/04/2019 SECTION 10/05/2020 - 10/04/2021 Medical History Medical History Date Comments History of chicken pox PONV (postoperative nausea and vomiting) Family History Medical History Relation Name Comments Diverticulitis Father Hypertension Father prediabetes Father Relation Name Status Comments Father Alive Mother Alive Social History Tobacco Use Types Packs/Day Years [...] on file Sexual Orientation Not on file Last Filed Vital Signs Vital Sign Reading Time Taken Comments Blood Pressure 112/68 08/23/2025 7:33 AM REGISTERED NURSE MIDWIFE Pulse 80 08/23/2025 7:33 AM REGISTERED NURSE MIDWIFE Temperature 36.6 C (97.8 F) 08/23/2025 7:33 AM REGISTERED NURSE MIDWIFE Respiratory Rate 16 08/23/2025 7:33 AM REGISTERED NURSE MIDWIFE Oxygen Saturation 99% 08/23/2025 7:33 AM REGISTERED NURSE MIDWIFE Inhaled Oxygen Concentration - - Weight 104.8 kg (231 lb) 08/25/2025 7:27 AM REGISTERED NURSE MIDWIFE Height 170.2 cm (5' 7) 08/25/2025 7:27 AM REGISTERED NURSE MIDWIFE Body Mass Index 36.18 08/25/2025 7:27 AM REGISTERED NURSE MIDWIFE Plan of Treatment Health Maintenance Due Date Last Done Comments Regular Well Visit/Exam 18-64 1999 Covid-19 Vaccine ( season) 2025 09/30/2021, 12/11/2020 Influenza Vaccine (#1) 2025 09/30/2021, 2019 Cervical Cancer Screening 02/15/2026 02/15/2025, 10/2024 Breast Cancer Screening-Mammogram 05/09/2026 05/09/2025, 04/04/2025 HPV Vaccines (1 - 3-dose SCDM series) 07/04/2026 Postponed from 2008 (Patient declined, but will receive in the future) Depression Screening 08/23/2026 08/23/2025, 08/23/2025, 07/04/2025, Additional history exists DTaP/Tdap/Td Vaccine (2 - Td or Tdap) 03/06/2031 03/06/2021 Hepatitis B Screening Completed 07/04/2025 Hepatitis C Screening Completed 07/04/2025 Pneumococcal vaccine <65 Aged Out No longer eligible based on patient's age to complete this topic Procedures Procedure Name Priority Date/Time Associated Diagnosis Comments COLONOSCOPY 07/21/2025 9:27 AM CDT COLONOSCOPY 07/21/2025 9:23 AM CDT Encounter for screening colonoscopy POCT HCG, URINE Routine 07/21/2025 8:28 AM CDT VITAMIN B12 Routine 07/07/2025 7:51 AM CDT Anemia, unspecified type FOLATE Routine 07/07/2025 7:51 AM CDT Anemia, unspecified type IRON PROFILE W/ IBC Routine 07/07/2025 7 :51 AM CDT Anemia, unspecified type EGFR Routine 07/04/2025 8:41 AM CDT Annual physical exam BLOOD SMEAR REVIEW Routine 07/04/2025 8: 41 AM CDT Annual physical exam DIFFERENTIAL AUTO Routine 07/04/2025 8:4 1 AM CDT Annual physical exam CBC WITH AUTO DIFFERENTIAL Routine 07/04/2025 8:41 AM CDT Annual physical exam HEMOGLOBIN A1C Routine 07/04/2025 8:41 AM CDT Annual physical exam LIPID PANEL Routine 07/04/2025 8:41 AM CDT Annual physical exam COMPREHENSIVE METABOLIC PANEL Routine 07/04/2025 8:41 AM CDT Annual physical exam HEPATITIS C ANTIBODY Routine 07/04/2025 8:41 AM CDT Need for hepatitis C screening test HEPATITIS B SURFACE ANTIGEN Routine 07/04/2025 8:41 AM CDT Need for hepatitis B screening test HEPATITIS B CORE ANTIBODY, TOTAL Routine 07/04/2025 8:41 AM CDT Need for hepatitis B screening test HEPATITIS B SURFACE ANTIBODY (IMMUNE STATUS) Routine 07/04/2025 8:41 AM CDT Need for hepatitis B screening test HM MAMMOGRAPHY Routine 05/09/2025 2:10 PM CDT HM PAP SMEAR Routine 02/15/2025 4:09 PM CDT from Last 3 Months or Most Recently Relevant to Health Maintenance Results * Colonoscopy (07/21/2025 9:27 AM CDT) Anatomical Region Laterality Modality Other Narrative Procedure Note Andrew Avila MD - 07/21/2025 9:27 AM CDT [facility] Patient Name: Mone Spencer Procedure Date: 07/21/2025 9:27 AM Date of : 1980 Admit Type: Outpatient Age: 44 Gender: Female Attending MD: Andrew Avila M.D., Room: [facility] PROCEDURE 1 Note Status: Finalized Procedure: Colonoscopy Indications: Screening for colorectal malignant neoplasm Referring MD: Linette Cummings M.D. Providers: Andrew Avila M.D. Medicines: Monitored Anesthesia Care Complications: No immediate complications. Estimated blood loss:None. Estimated Blood Loss: Estimated blood loss: none. Procedure: The benefits, risks and alternatives of theprocedure and sedation were discussed and informed consentwas obtained. All questions were answered. Please referto the signed informed consent document in the medical record. The colonoscopy was performed without difficulty. The patient tolerated the procedurewell. The quality of the bowel preparation was good. A computer-assisted device with artificialintelligence (Digidentity) designed to detect polyps was usedduring the exam. The scope was passed under direct vision. The was introduced through the anus and advanced to the terminal ileum. Findings: Internal hemorrhoids were found during retroflexion. The hemorrhoids were mild. The exam was otherwise without abnormality. Impression: - Internal hemorrhoids. - The examination was otherwise normal. - No specimens collected. Recommendation: - Repeat colonoscopy in 10 years for screening purposes. Andrew Avila M.D. Andrew Avila M.D. 07/21/2025 9:47:51 AM . Number of Addenda: 2 Note Initiated On: 07/21/2025 9:27 AM Addendum Number: 1 Addendum Date: 08/22/2025 12:42:45 PM The endoscope was advanced to the level of the terminal ileum. DSL Andrew Avila M.D. Andrew Avila M.D. 08/22/2025 12:43:07 PM . Addendum Number: 2 Addendum Date: 08/22/2025 12:44:04 PM The intstrument was introduced through the anus and advanced to the terminal ileum. DSL Andrew Avila M.D. Andrew Avila M.D. 08/22/2025 12:44:30 PM . Andrew Avila MD ENDOSCOPY PROCEDURES Edited Result - Final * POCT hCG, urine (07/21/2025 8:28 AM CDT) [facility] HCG, ur, POC Negative Negative Lot Number [id number] QC Backgroud Clear Acceptable QC Control Line Acceptable Urine 07/21/2025 8:28 AM CDT Fito Rojas MD POINT OF CARE TEST ORDE RABLES Final Result * (ABNORMAL) Iron profile w/ IBC (07/07/2025 7:51 AM CDT) [facility] Iron 42 35 - 145 mcg/dL TIBC 421(H) 250 - 400 mcg/dL [facility] Transferrin saturation 10(L) 20 - 50 % [facility] Blood 07/07/2025 7:51 AM CDT 07/07/2025 10:42 AM CDT Linette Cummings MD LAB BLOOD ORDERABLES Vanessa l Result [facility] [address] [facility] Department [place] [address] * Folate (07/07/2025 7:51 AM CDT) [facility] Folic acid 19.3 >=5.0 ng/mL Blood 07/07/2025 7:51 AM CDT 07/07/2025 11:42 AM CDT Result [facility] Vivienne Cummings MD LAB BLOOD ORDERABLES Vanessa l Result Performing Organization Address [facility]/ZIP Co de Phone Number [address] [place] [address] * Vitamin B12 (07/07/2025 7:51 AM CDT) [facility] Vitamin B12 465 230 - 1,250 pg/mL Blood 07/07/2025 7:51 AM CDT 07/07/2025 10:42 AM CDT Result [facility] Vivienne Cummings MD LAB BLOOD ORDERABLES Vanessa l Result Performing Organization Address [facility] de Phone Number [address] [place] [address] * (ABNORMAL) Blood smear review (07/04/2025 8:41 AM CDT) [facility] RBC morphology Present(A) Polychromasia 3-7/HPF(A) [facility] Hypochromasia 3-7/HPF(A) [facility] Anisocytosis Moderate(A) [facility] Poikilocytosis Moderate(A) [facility] Microcytes 3-7/HPF(A) [facility] Macrocytes 8-15/HPF(A) [facility] Elliptocytes 8-15/HPF(A) [facility] Platelet estimate Automated Count Confirmed [facility] Blood 07/04/2025 8:41 AM CDT 07/04/2025 10:55 AM CDT Result [facility] Vivienne Cummings MD LAB BLOOD ORDERABLES Vanessa l Result Performing Organization Address [facility]/ZIP Co de Phone Number [address] [place] [address] * eGFR (07/04/2025 8:41 AM CDT) [facility] eGFR >90 >=60 mL/min/1. 73 m2 Comment: Interpretive Data Reference Interval Normal >/= 90 mL/min/1.73m2 Mildly decreased* 60 - 89 mL/min/1.73m2 Mildly to moderately decreased 45 - 59 mL/min/1.73m2 Moderately to severely decreased 30 - 44 mL/min/1.73m2 Severely decreased 15 - 29 mL/min/1.73m2 Kidney Failure < 15 mL/min/1.73m2 *Relative to young adult level Estimated glomerular filtration rate is determined by the 2020 CKD-EPI equation recommended by the National Kidney Foundation (A Unifying Approach to GFR Estimation: Recommendations of the NKF-ASK Task Force on Reassessing the Inclusion of Race in Diagnosing Kidney Disease, JASN 2020). The CKD-EPI equation should not be used for patients with unstable renal function and has not been validated in children and those over 70. Current interpretive data was last reviewed 2021. Blood 07/04/2025 8:41 AM CDT 07/04/2025 10:55 AM CDT [facility] Vivienne Cummings MD LAB BLOOD ORDERABLES Vanessa madsen Result [facility] [address] [facility] Department [place] [address] * Differential, auto (07/04/2025 8:41 AM CDT) [facility] Neutrophil abs 4.06 1.50 - 6.50 K/cumm Imm gran abs 0.01 0.00 - 0.10 K/cumm [facility] Lymphocyte abs 1.34 0.80 - 3.30 K/cumm [facility] Monocyte abs 0.52 0.20 - 0.80 K/cumm [facility] Eosinophil abs 0.13 0.00 - 0.50 K/cumm [facility] Basophil abs 0.06 0.00 - 0.10 K/cumm [facility] Neutrophil pct 66.3 % [facility] Comment: Interpretive Data Percent cell count reference ranges are not reported, since discordance with absolute values may lead to misinterpretation of CBC data. Current Interpretive Data was last revised on 2018. Imm gran pct 0.2 % [facility] Comment: Interpretive Data Percent cell count reference ranges are not reported, since discordance with absolute values may lead to misinterpretation of CBC data. Current Interpretive Data was last revised on 2018. Lymphocyte pct 21.9 % [facility] Comment: Interpretive Data Percent cell count reference ranges are not reported, since discordance with absolute values may lead to misinterpretation of CBC data. Current Interpretive Data was last revised on 2018. Monocyte pct 8.5 % [facility] Comment: Interpretive Data Percent cell count reference ranges are not reported, since discordance with absolute values may lead to misinterpretation of CBC data. Current Interpretive Data was last revised on 2018. Eosinophil pct 2.1 % [facility] Comment: Interpretive Data Percent cell count reference ranges are not reported, since discordance with absolute values may lead to misinterpretation of CBC data. Current Interpretive Data was last revised on 2018. Basophil pct 1.0 % [facility] Comment: Interpretive Data Percent cell count reference ranges are not reported, since discordance with absolute values may lead to misinterpretation of CBC data. Current Interpretive Data was last revised on 2018. Blood 07/04/2025 8:41 AM CDT 07/04/2025 10:55 AM CDT [facility] Vivienne Cummings MD LAB BLOOD ORDERABLES Vanessa madsen Result [facility] [address] [facility] Department [place] [address] * (ABNORMAL) CBC with auto differential (07/04/2025 8:41 AM CDT) WBC 6.12 3.80 - 9.90 K/cumm Hgb 8.7(L) 11.9 - 15.5 g/dL [facility] Hct 31.3(L) 35.6 - 45.5 % [facility] Plt 380 150 - 400 K/cumm [facility] MPV 10.1 9.1 - 12.3 fL [facility] RBC 4.87 3.90 - 5.20 M/cumm [facility] MCV 64.3(L) 81.3 - 96.4 fL [facility] MCH 17.9(L) 27.1 - 33.3 pg [facility] MCHC 27.8(L) 32.3 - 35.7 g/dL [facility] RDW CV 19.9(H) 11.1 - 14.9 % [facility] RDW SD 43.4 35.7 - 48.1 fL [facility] NRBC abs 0.00 0.00 - 0.01 K/cumm [facility] Blood 07/04/2025 8:41 AM CDT 07/04/2025 10:55 AM CDT Result [facility] Linette Cummings MD LAB BLOOD ORDERABLES Edit ed Result - Final Performing Organization Address [facility] de Phone Number [address] [place] [address] * Hepatitis C antibody Blood (07/04/2025 8:41 AM CDT) Hep C Ab Nonreactive Nonreactive Comment: Antibodies to HCV not detected. Does NOT exclude the possibility of recent exposure to HCV. Current interpretive data was last revised on 22 Interpretive Data Nonreactive: Antibodies to HCV not detected. Does NOT exclude the possibility of recent exposure to HCV. Equivocal: Equivocal for HCV antibodies. Supplemental molecular testing will be automatically performed to determine infection status in accordance with current CDC screening recommendations. Reactive: Positive for HCV antibodies. This may represent current or past HCV infection. Supplemental molecular testing will be automatically performed to determine current infection status in accordance with current CDC screening recommendations. Interpretive data was last revised on 2019. Blood 07/04/2025 8:41 AM CDT 07/04/2025 10:55 AM CDT Linette Cummings MD LAB MICROBIOLOGY - GENERA L ORDERABLES Final Result Performing Organization Address [facility] de Phone Number [address] [place] [address] * Hepatitis B core antibody, total Blood (07/04/2025 8:41 AM CDT) Pathologist [facility] Hep B core IgG/IgM Nonreactive Nonreactive Comment:Testing performed by : [facility], [address] [facility], [place] [address] Blood 07/04/2025 8:41 AM CDT 07/04/2025 1:16 PM CDT Linette Cummings MD LAB MICROBIOLOGY - BEETmobile L ORDERABLES Final Result Performing Organization Address [facility] de Phone Number [address] [place] [address] * Hepatitis B surface antibody (immune status) Blood (07/04/2025 8:41 AM CDT) [facility] HBsAb (immune status) Reactive Comment: Interpretive Data Nonreactive: This result is consistent with a lack of immunity to Hepatitis B Virus when used in the setting of routine screening. Equivocal: The immune status of the individual should be further assessed, if appropriate, after consideration of clinical status, risk factors, and additional diagnostic information. Reactive: This result is consistent with immunity to Hepatitis B Virus when used in the setting of routine screening. Current interpretive data was last revised on 19. HBsAb (immune status) index 13.0 mIUnits/m L [facility] Blood 07/04/2025 8:41 AM CDT 07/04/2025 10:55 AM CDT Linette Cummings MD LAB MICROBIOLOGY - BEETmobile L ORDERABLES Final Result Performing Organization Address [facility] Co de Phone Number [facility] [address] [place] [address] [place] [address] * Hepatitis B Surface Antigen Blood (07/04/2025 8:41 AM CDT) Pathologist [facility] HepBsAg Nonreactive Nonreactive Blood 07/04/2025 8:41 AM CDT 07/04/2025 10:55 AM CDT Linette Cummings MD LAB MICROBIOLOGY - GENERA L ORDERABLES Final Result Performing Organization Address [facility] Co de Phone Number JER[facility] [address] [address] * Hemoglobin A1c (07/04/2025 8:41 AM CDT) Hgb A1C 5.3 4.0 - 5.6 % Estimated Average Glucose 105 mg/dL [facility] Comment: The ADA recommends reporting an estimated Average Glucose (eAG) with all Hemoglobin A1c results using the equation derived from a study of 507 normal and diabetic adults. Minority populations were underrepresented and children were not included. (Diabetes Care 31:5831-2875, 2008). The eAG is not equivalent to a fasting glucose. Blood 07/04/2025 8:41 AM CDT 07/04/2025 10:55 AM CDT Linette Cummings MD LAB BLOOD ORDERABLES Vanessa l Result Performing Organization Address City/[facility] Co de Phone Number [id number] [address] * Lipid panel (07/04/2025 8:41 AM CDT) Cholesterol 155 30 - 199 mg/dL Comment: Interpretive Data Ages < or = 19 years Acceptable: <170 mg/dL Borderline high: 170-199 mg/dL High: >or= 200 mg/dL Ages > or = 20 years Desirable: <200 mg/dL Borderline high: 200-239 mg/dL High: >or= 240 mg/dL Literature References: 1. Expert Panel on Integrated Guidelines for Cardiovascular Health and Risk Reduction in Children and Adolescents. Pediatrics 2011;128:S213 2. NCEP Expert Panel. Circulation 2004;110:227 Current Interpretive Data was last revised on 2018. Triglycerides 64 <=149 mg/dL [facility] Comment: Interpretive Data Ages < or = 9 years Acceptable: <75 mg/dL Borderline high: 75-99 mg/dL High: >or= 100 mg/dL Ages 10 to 20 years Acceptable: <90 mg/dL Borderline high: 90-129 mg/dL High: >or= 130 mg/dL Ages > or = 20 years Desirable: <150 mg/dL Borderline high: 150-199 mg/dL High: 200-499 mg/dL Very high: >or= 499 mg/dL Literature References: 1. Expert Panel on Integrated Guidelines for Cardiovascular Health and Risk Reduction in Children and Adolescents. Pediatrics 2011;128:S213 2. NCEP Expert Panel. Circulation 2004;110:227 Current Interpretive Data was last revised on 2018. HDL 60 >=40 mg/dL [facility] [place] Comment: Interpretive Data Ages < or = 19 years Acceptable: >45 mg/dL Borderline low: 40-45 mg/dL Low: <40 mg/dL Ages > or = 20 years Desirable: >or= 60 mg/dL Low: <40 mg/dL Literature References: 1. Expert Panel on Integrated Guidelines for Cardiovascular Health and Risk Reduction in Children and Adolescents. Pediatrics 2011;128:S213 2. NCEP Expert Panel. Circulation 2004;110:227 Current Interpretive Data was last revised on 2018. LDL, calculated 82 <=129 mg/dL [facility] [place] Comment: Interpretive Data Ages < or = 19 years Acceptable: <110 mg/dL Borderline high: 110-129 mg/dL High: >or= 130 mg/dL Ages > or = 20 years Optimal: <100 mg/dL Near optimal: 100-129 mg/dL Borderline high: 130-159 mg/dL High: >160 mg/dL Calculated using the Jorge LDL-C estimating equation. This equation was implemented on 2024. Prior to this date LDL-C was estimated using the Friedewald equation. Literature References: 1. Expert Panel on Integrated Guidelines for Cardiovascular Health and Risk Reduction in Children and Adolescents. Pediatrics 2011;128:S213 2. NCEP Expert Panel. Circulation 2004;110:227 3. Jorge Crews al. MARÍA Cardiol. 2020 February 02;5(5):540-548. doi: 10.1001/[email or web address].2020.0013 Current Interpretive Data was last revised on 2024. Non-HDL Cholesterol 95 mg/dL [facility] Comment: Interpretive Data Ages < or = 19 years Acceptable: <120 mg/dL Borderline high: 120-144 mg/dL High: >145 mg/dL Ages > or = 20 years When triglycerides are >200 mg/dL, Non-HDL cholesterol is a secondary target of therapy with treatment goals that are 30 mg/dL greater than the LDL cholesterol target. Literature References: 1. Expert Panel on Integrated Guidelines for Cardiovascular Health and Risk Reduction in Children and Adolescents. Pediatrics 2011;128:S213 2. NCEP Expert Panel. Circulation 2004;110:227 Current Interpretive Data was last revised on 2018. Chol/HDL ratio 3 [facility] Blood 07/04/2025 8:41 AM CDT 07/04/2025 10:55 AM CDT [facility] Vivienne Cummings MD LAB BLOOD ORDERABLES Vanessa l Result [facility] [address] [facility] Department [place] [address] * (ABNORMAL) Comprehensive metabolic panel (07/04/2025 8:41 AM CDT) Sodium 138 135 - 145 mmol/L Potassium, pl 4.3 3.3 - 4.9 mmol/L [facility] Chloride 105 97 - 110 mmol/L [facility] CO2 24 22 - 32 mmol/L [facility] Anion gap 9 2 - 15 mmol/L [facility] BUN 10 6 - 25 mg/dL [facility] Creatinine 0.64 0.60 - 1.10 mg/dL [facility] [facility] Glucose 88 70 - 199 mg/dL [facility] Comment: Interpretive Data Fasting glucose >/= 126 mg/dl is diagnostic for diabetes. Fasting is defined as no caloric intake for at least 8 hours. Fasting glucose between 100 mg/dl to 125 mg/dl is diagnostic of prediabetes. In a patient with classic symptoms of hyperglycemia or hyperglycemic crisis, a random glucose >/= 200 mg/dl is diagnostic for diabetes. In the absence of unequivocal hyperglycemia, results should be confirmed by repeat testing. The classification and Diagnosis of Diabetes Diabetes Care 202; 46: S19-S40. Current interpretive data was last revised 2022. Calcium 10.9(H) 8.5 - 10.3 mg/dL [facility] Bilirubin, total 0.5 0.1 - 1.2 mg/dL [facility] Protein, pl 7.1 6.5 - 8.5 g/dL [facility] Albumin 4.3 3.5 - 5.0 g/dL [facility] Alk phos 61 40 - 130 Units/L [facility] ALT 10 7 - 45 Units/L [facility] AST 17 10 - 45 Units/L [facility] Blood 07/04/2025 8:41 AM CDT 07/04/2025 10:55 AM CDT Result [facility] Linette Cummings MD LAB BLOOD ORDERABLES Vanessa madsen Result [address] [facility] Department [place] [address] * MAMMOGRAPHY (05/09/2025 2:10 PM CDT) Historical Provider HEALTH MAINTENANCE Final Result * PAP SMEAR (02/15/2025 4:09 PM CDT) Historical Provider HEALTH MAINTENANCE Final Result from Last 3 Months or Most Recently Relevant to Health Maintenance Insurance [facility] ACCESS CHOICE Care Teams Sod Farmer Relationship Specialty Start Date End Date Linette Cummings MD [address] [address] PCP - General Family Medicine 07/04/25
--- OUTSIDE RECORDS SUMMARY | 2025-08-25 12:20 | XMS_ITS | Encounter Summary ---
Author Organization [facility] Healthcare Address [address] [place] [address] Care Team Providers Care Basting Marker Name Role Phone Linette Cummings MD Primary Care Provider [phone] Encounter Details Date Type Department Care Team (Latest Contact Info) Description 07/06/2025 Results Follow-Up [facility] Medical [facility] Primary Care at [address] [address] Linette Cummings MD [address] [place] [address] [address] [place] [address] Comprehensive metabolic panel, Lipid panel, Hemoglobin A1c, Additional followed-up results: 8 Social History Tobacco Use Types Packs/Day Years [...] on file documented as of this encounter Plan of Treatment Not on file documented as of this encounter Results * (ABNORMAL) Iron profile w/ IBC (07/07/2025 7:51 AM CDT) Pathologist [facility] Iron 42 35 - 145 mcg/dL TIBC 421(H) 250 - 400 mcg/dL [facility] Transferrin saturation 10(L) 20 - 50 % [facility] Blood 07/07/2025 7:51 AM CDT 07/07/2025 10:42 AM CDT Linette Cummings MD LAB BLOOD ORDERABLES Vanessa l Result Performing Organization Address [facility]/ZIP Co de Phone Number [address] [place] [address] * Folate (07/07/2025 7:51 AM CDT) Pathologist [facility] Folic acid 19.3 >=5.0 ng/mL Blood 07/07/2025 7:51 AM CDT 07/07/2025 11:42 AM CDT Linette Cummings MD LAB BLOOD ORDERABLES Vanessa l Result Performing Organization Address City/[facility] Co de Phone Number [address] [place] [address] * Vitamin B12 (07/07/2025 7:51 AM CDT) Pathologist [facility] Vitamin B12 465 230 - 1,250 pg/mL Blood 07/07/2025 7:51 AM CDT 07/07/2025 10:42 AM CDT Linette Cummings MD LAB BLOOD ORDERABLES Vanessa l Result Performing Organization Address City/[facility] Co de Phone Number [address] [place] [address] documented in this encounter Visit Diagnoses Diagnosis Anemia, unspecified type- Primary documented in this encounter Care Teams Basting Marker Relationship Specialty Start Date End Date Linette Cummings MD [address] [address] PCP - General Family Medicine 07/04/25 documented as of this encounter
--- NOTE | 2025-08-25 14:05 | ECG_ITS ---
Test Date: 2025-08-25 14:26:14 Measurements Intervals [place] Rate: 44 P: 36 OR: 129 QRS: 15 QRSD: 103 T: 27 QT: 423 QTc: 363 Interpretive Statements SINUS BRADYCARDIA No previous ECG available for comparison Electronically Signed On 08-25-2025 19:07:46 [employer]ACHINE [employer]ER [employer]IP[employer] by Joe Ortiz M.D.
--- NOTE | 2025-08-25 14:08 | PC.NURSE ---
Pt. approached intake desk alerting this RN that I feel like I'm going to passout again. Pt. already seated in a WC. Pt. alert and A&Ox4 at this time. Pt. brought into triage room. Syncope protocol initiated and vital signs obtained.
[2025-08-25 14:23] LABS: Hematocrit 32.1 % (37.0-47.0); Hemoglobin 9.1 g/dL (12.0-15.0); Immature Granulocyte Percent A 0.5 % (0-0.5); Lymphocytes Absolute Auto 1.07 K/mm3 (0.9-3.2); Mean Corpuscular HGB Conc 28.3 g/dl (32-36); Mean Corpuscular Hemoglobin 18.6 pg (26-34); Mean Corpuscular Volume 65.8 fl (80-100); Nucleated Red Blood Cells Absolute Auto 0.000 K/mm3 (0.0-0.012); Nucleated Red Blood Cells Perc 0.0 % (0.0-0.2); Platelet Count Result 461 k/mm3 (150-375); Red Blood Count 4.88 M/mm3 (4.2-5.4); White Blood Count 13.0 K/mm3 (4.5-10.0)
--- NOTE | 2025-08-25 14:40 | PC.NURSE ---
patient stated that she has been vomiting for days. decreased PO intake.
--- NOTE | 2025-08-25 14:54 | ED.GENADULT ---
HPI - General Adult General Chief complaint: Syncope Stated complaint: n,v, fainting Time Seen by Provider: 08/25/25 14:53 Source: patient Mode of arrival: ambulatory Limitations: no limitations History of Present Illness HPI narrative: 44 years old white female came to the ED from home by ambulance complaining of nausea and vomiting for 2 and half days. She report vomiting a lot, she denies any fever, chills, abdominal pain or diarrhea or upper respiratory symptoms. History of anemia on iron supplement. Today patient was having severe nausea, severe dry heave, gagging, subsequently blacked out. She denies any injury, headache or neck pain. Patient does not smoke or drink or use drugs. Related Data Home Medications ?Medication ?Instructions ?Recorded ?Confirmed ?Last Taken ?Type calcium carbonate (Calcium 600) 600 mg PO DAILY 04/01/21 01/06/24 05/14/21 History ergocalciferol (vitamin D2) 1,250 1,250 mcg PO WEEKLY 04/01/21 01/06/24 05/14/21 History mcg (50,000 unit) capsule (Vitamin D2) ferrous sulfate 325 mg (65 mg 325 mg PO DAILY 04/01/21 01/06/24 05/14/21 History iron) tablet Allergies Allergy/AdvReac Type Severity Reaction Status Date / Time Penicillins Allergy Rash Verified 08/25/25 12:20 [facility] Past Medical History Medical History (Updated 08/25/25 @ 17:58 by Judson Wagner MD) Obesity Advanced maternal age (AMA) in Family History Family History (Updated 05/02/21 @ 12:41 by Trish Becerra RN) Other No pertinent family history Social History Social History Smoking status: Never smoker Second hand tobacco smoke exposure: No Substance use: never Gender identity (if verbalized by the patient): Female Spiritual care concerns: No Exam Narrative: General appearance: Well-developed, well-nourished Skin: Normal color Head: Normocephalic, nontraumatic Eyes: Pale conjunctiva ENT: Oropharynx normal, ears normal, nose normal Neck: Supple, nontender Chest and respiratory: Airway patent, no respiratory distress, no accessory muscle use Heart: Regular rate/rhythm Abdomen: Soft, nontender, no organomegaly, quiet bowel sounds Vascular: Normal peripheral pulses, normal capillary refill. Musculoskeletal: Normal range of motion, nontender back Neurologic: Alert and oriented ?3, [employer] is normal as tested, no gross motor deficit Course Vital Signs Vital signs: Vital Signs Temperature 36.9 C 08/25/25 12:20 Pulse Rate 97 08/25/25 12:20 Respiratory Rate 18 08/25/25 12:20 Blood Pressure 134/72 08/25/25 12:20 Pulse Oximetry 99 08/25/25 12:20 Oxygen Delivery Room Air 08/25/25 12:20 Temperature 36.6 C 08/25/25 14:09 Pulse Rate 41 L 08/25/25 16:35 Respiratory Rate 18 08/25/25 16:35 Blood Pressure 120/67 08/25/25 16:35 Pulse Oximetry 100 08/25/25 16:35 Oxygen Delivery Room Air 08/25/25 12:20 Medical Decision Making MDM Narrative Medical decision making narrative: Patient came with nausea, vomiting and dry heaves Vital signs are stable Physical examination unremarkable except for bradycardia Differential diagnosis include viral infection, stress like symptoms, electrolyte imbalance, dehydration, urinary tract infection Blood workup today includes CBC, CMP, lipase showed WBC 13.0, hemoglobin 9.1, hematocrit 32.1, platelet 461, glucose 113, calcium 11.2 Urinalysis showed 3+ ketones, 3+ blood otherwise within normal limit Patient feeling much better, no nausea at this time after receiving 2 L of normal saline and 8 mg of Zofran. Diagnosis: Vomiting, hypercalcemia. Patient syncope at home likely secondary to gagging triggering vasovagal, on arrival patient heart rate was 41, at the time of discharge 88. Patient was advised to repeat blood workup in 1 week to check on the hypercalcemia. Which could be secondary to hypervitaminosis patient on vitamin right now, immobility patient is not physically active, increases calcium intake. The pt was discharged to home.the pt,s condition upon discharge was fair,education was provided to the pt in reference to the final impression,discharge study results,treatment,prognosis and need for follow up . Differential Diagnosis Differential Diagnosis: As above Vital Signs Vital Signs: Vital Signs Temperature 36.9 C 08/25/25 12:20 Pulse Rate 97 08/25/25 12:20 Respiratory Rate 18 08/25/25 12:20 Blood Pressure 134/72 08/25/25 12:20 Pulse Oximetry 99 08/25/25 12:20 Oxygen Delivery Room Air 08/25/25 12:20 Temperature 36.6 C 08/25/25 14:09 Pulse Rate 41 L 08/25/25 16:35 Respiratory Rate 18 08/25/25 16:35 Blood Pressure 120/67 08/25/25 16:35 Pulse Oximetry 100 08/25/25 16:35 Oxygen Delivery Room Air 08/25/25 12:20 Lab Data 08/25/25 14:17 08/25/25 14:17 Labs: Lab Results 08/25/25 08/25/25 08/25/25 Range/Units 14:17 15:15 16:37 WBC 13.0 H (4.5-10.0) K/mm3 RBC 4.88 (4.2-5.4) M/mm3 Hgb 9.1 L (12.0-15.0) g/dL Hct 32.1 L (37.0-47.0) % MCV 65.8 L (80-100) fl MCH 18.6 L (26-34) pg MCHC 28.3 L (32-36) g/dl RDW 20.6 H (11.5-14.5) % Plt Count 461 H D (150-375) k/mm3 MPV 10.1 (7.4-10.4) fl Immature Gran % (Auto) 0.5 (0-0.5) % Neut % (Auto) 86.7 H (45.5-73.1) % Lymph % (Auto) 8.2 L (18.3-44.2) % Turner % (Auto) 4.2 (2.6-8.5) % Eos % (Auto) 0.0 (0-4.4) % Baso % (Auto) 0.4 (0.2-1.2) % Lymph # (Auto) 1.07 (0.9-3.2) K/mm3 Turner # (Auto) 0.6 (0.1-0.6) K/mm3 Eos # (Auto) 0.0 (0-0.3) K/mm3 Baso # (Auto) 0.1 (0.0-0.1) K/mm3 Abs Immat Gran (auto) 0.06 H (0.00-0.031) K/mm3 Absolute Neuts (auto) 11.2 H (1.3-6.7) K/mm3 Absolute Nucleated RBC 0.000 (0.0-0.012) K/mm3 Band Neutrophils % 0 (0-6) % Nucleated RBC % 0.0 (0.0-0.2) % Platelet Estimate Increased (Adequate) Hypochromasia 1+ Anisocytosis 3+ Microcytosis 1+ (NORMAL) Ovalocytes 1+ Schistocytes Occasional Sodium 137 (137-145) mmol/L Potassium 3.7 (3.4-5.0) mmol/L Chloride 105 (98-107) mmol/L Carbon Dioxide 24 (22-30) mmol/L Anion Gap 8 (4-12) mmol/L BUN 16 (7-17) mg/dL Creatinine 0.74 (0.7-1.0) mg/dL Estim Creat Clear Calc 105 ml/min Estimated GFR > 60 (59 - ) Glucose 113 H (65-110) mg/dL Calcium 11.2 H (8.4-10.2) mg/dL Total Bilirubin 0.8 (0.2-1.3) mg/dL AST 28 (14-36) U/L ALT 17 (6-35) U/L Alkaline Phosphatase 64 (38-126) U/L Total Protein 7.9 (6.3-8.2) g/dL Albumin 4.7 (3.5-5.1) g/dL Urine Color Dark yellow (Yellow) Urine Appearance Turbid H (Clear) Urine pH 5.0 (5.0-9.0) Ur Specific [place] 1.039 H (1.001-1.035) Urine Protein 2+ H (Negative) mg/dL Urine Glucose (UA) Negative (Negative) mg/dL Urine Ketones 3+ H (Negative) mg/dL Ur Blood (Man) 3+ H (Negative) Urine Nitrate Negative (Negative) Urine Bilirubin Negative (Negative) Urine Urobilinogen 1.0 (<2.0) mg/dL Add Ur Microanalysis Reviewed Leukocyte Esterase Rfl Negative (Negative) THOM/UL Urine RBC 3-5 H (0-2) /hpf Urine WBC 0-5 (0-3) /hpf Ur Squamous Epith Cells Few (Few) /hpf Calcium Oxalate Crystal Present (None) /hpf Urine Bacteria Rare /hpf Urine Casts 3-5 Influenza A (RT-PCR) Negative (Negative) Influenza B (RT-PCR) Negative (Negative) RSV (RT-PCR) Negative (Negative) SARS-CoV-2 RNA (RT-PCR) Negative (Negative) Critical Care Time Critical Care Time Critical Care Time: Yes Total Critical Care Time: 30 Discharge Plan Discharge Clinical Impression: Vomiting, Hypercalcemia, Syncope, vasovagal Patient Disposition: Home Condition: Improved Instructions: Acute Nausea and Vomiting (ED), Hypercalcemia (ED), Syncope in Older Adults (ED) Additional Instructions: Return if symptoms are worsening , call your family physician for appointment, take Tylenol as as needed for aches and pain, continue home medications. Family physician in 1 week to check on your hypercalcemia Patient Language: Greenlandic Prescriptions: No Action calcium carbonate [Calcium 600] 600 mg calcium (1,500 mg) Tablet 600 mg PO DAILY ferrous sulfate 325 mg (65 mg iron) Tablet 325 mg PO DAILY ergocalciferol (vitamin D2) [Vitamin D2] 1,250 mcg (50,000 unit) Capsule 1,250 mcg PO WEEKLY Patient Comments: Takes every Thursday ibuprofen 600 mg Tablet 600 mg PO Q6H PRN (Reason: Cramping) Qty: 30 0RF Follow-up/Referrals: UNKNOWN,DOCTOR [Primary Care Provider]
[2025-08-25 14:58] LABS: Band Neutrophils Percent 0 % (0-6); Schistocytes Occasional
[2025-08-25 14:59] LABS: Anisocytosis 3+; Hypochromasia 1+; Microcytosis 1+ (NORMAL)
[2025-08-25 15:00] LABS: Ovalocytes 1+
[2025-08-25 15:01] LABS: Alanine Aminotransferase 17 U/L (6-35); Albumin Level 4.7 g/dL (3.5-5.1); Alkaline Phosphatase 64 U/L (38-126); Anion Gap 8 mmol/L (4-12); Aspartate Amino Transferase 28 U/L (14-36); Bilirubin,Total 0.8 mg/dL (0.2-1.3); Blood Urea Nitrogen 16 mg/dL (7-17); Calcium 11.2 mg/dL (8.4-10.2); Carbon Dioxide 24 mmol/L (22-30); Chloride 105 mmol/L (98-107); Estimated CRCL calculation 105 ml/min; Estimated Glomerular Filt Rate > 60; Glucose 113 mg/dL (65-110); Potassium 3.7 mmol/L (3.4-5.0); Sodium 137 mmol/L (137-145); Total Protein 7.9 g/dL (6.3-8.2)
[2025-08-25] MEDS: SODIUM CHLORIDE 0.9% IV 1,000 ML 999 ML IV CONT ×2 (15:46)
[2025-08-25] MEDS: ONDANSETRON INJ 4 MG/2 ML VIAL 8 MG IV PUSH (15:46)
--- OUTSIDE RECORDS SUMMARY | 2025-08-25 15:47 | XMS_ITS | Encounter Summary ---
Author Organization [facility] Healthcare Address [address] [place] [address] Care Team Providers Care Tube Tester Name Role Phone Linette Cummings MD Primary Care Provider [phone] Encounter Details Date Type Department Care Team (Late st Contact Info) Description 07/10/2025 Results Follow-Up [facility] Medical Group Primary Care at [address] [address] Linette Cummings MD [address] [place] [address] [address] [place] [address] Iron profile w/ IBC, Folate, [...] on filedocumented in this encounter Care Teams Tube Tester Relationship Specialty Start Date End Date Linette Cummings MD [address] [address] PCP - General Family Medicine 07/04/25 documented as of this encounter
--- OUTSIDE RECORDS SUMMARY | 2025-08-25 15:47 | XMS_ITS | Clinical Summary ---
Author Organization [address] Address [address] [place] [id number] Care Team Providers Care Youth Pastor Name Role Phone Linette Cummings MD Primary Care Provider [phone] Allergies Active Allergy Reactions Criticality Noted Date [...] Department Care Team Description 08/25/2025 7:30 AM OPTICAL LATHE OPERATOR Telemedicine [facility] Primary Care at [address] [phone] Linette Cummings MD Upper respiratory infection, viral (Primary Dx) 08/23/2025 7:30 AM OPTICAL LATHE OPERATOR Office Visit [facility] Primary Care at [address] [phone] Linette Cummings MD Nausea and vomiting, unspecified vomiting type (Primary Dx); Class 2 obesity due to excess calories without serious comorbidity with body mass index (BMI) of 36.0 to 36.9 in adult 07/21/2025 9:30 AM CDT - 07/21/2025 10:00 AM CDT Surgery [address] [address] Andrew Avila MD [facility] 07/21/2025 9:22 AM CDT Anesthesia Event [address] [address] Andrew Avila MD Fitterer, Morgan Shelly [facility] 07/21/2025 8:17 AM CDT - 07/21/2025 10:25 AM CDT Hospital Encounter [address] [address] Andrew Avila MD Discharge Disposition: Discharge to home or self care 07/10/2025 Results Follow-Up [facility] Primary Care at [address] [phone] Linette Cummings MD Iron profile w/ IBC, Folate, Vitamin B12 07/07/2025 7:50 AM CDT Lab [address] [address] Anemia, unspecified type 07/06/2025 Results Follow-Up [facility] Primary Care at [address] [phone] Linette Cummings MD Comprehensive metabolic panel, Lipid panel, Hemoglobin A1c, Additional followed-up results: 8 07/04/2025 8:10 AM CDT Lab [address] [address] Annual physical exam; Need for hepatitis B screening test; Need for hepatitis C screening test 07/04/2025 7:30 AM CDT Office Visit [facility] Medical [facility] Primary Care at [address] [phone] Linette Cummings MD Annual physical exam (Primary Dx); Need for hepatitis C screening test; Need for hepatitis B screening test; Colon cancer screening 07/04/2025 Orders Only [facility] Gastroenterology at [address] [place] [address] Andrew Avila MD Nausea and vomiting, unspecified vomiting type (Primary Dx); Encounter for screening colonoscopy 07/04/2025 Telephone [facility] Primary Care at [address] [phone] Herbert Obrien CNA from Last [...] Comments Blood Pressure 112/68 08/23/2025 7:33 AM OPTICAL LATHE OPERATOR Pulse 80 08/23/2025 7:33 AM OPTICAL LATHE OPERATOR Temperature 36.6 C (97.8 F) 08/23/2025 7:33 AM OPTICAL LATHE OPERATOR Respiratory Rate 16 08/23/2025 7:33 AM OPTICAL LATHE OPERATOR Oxygen Saturation 99% 08/23/2025 7:33 AM OPTICAL LATHE OPERATOR Inhaled Oxygen Concentration - - Weight 104.8 kg (231 lb) 08/25/2025 7:27 AM OPTICAL LATHE OPERATOR Height 170.2 cm (5' 7) 08/25/2025 7:27 AM OPTICAL LATHE OPERATOR Body Mass Index 36.18 08/25/2025 7:27 AM OPTICAL LATHE OPERATOR Plan of Treatment Health Maintenance Due Date [...] Avila MD - 07/21/2025 9:27 AM CDT [facility] Patient Name: Mone Spencer Procedure Date: 07/21/2025 9:27 AM Date of : 1980 Admit Type: Outpatient Age: 44 Gender: Female Attending MD: Andrew Avila M.D., Room: [facility] PROCEDURE 1 Note Status: Finalized Procedure: Colonoscopy [...] was good. A computer-assisted device with artificialintelligence ([employer]) designed to detect polyps was usedduring the [...] POCT hCG, urine (07/21/2025 8:28 AM CDT) [facility] HCG, ur, POC Negative Negative Lot Number [id number] QC Backgroud Clear Acceptable QC Control Line Acceptable Urine 07/21/2025 8:28 AM CDT Fito Rojas MD POINT OF CARE TEST ORDE RABLES Final Result * (ABNORMAL) Iron profile w/ IBC (07/07/2025 7:51 AM CDT) [facility] Iron 42 35 - 145 mcg/dL TIBC 421(H) 250 - 400 mcg/dL [facility] Transferrin saturation 10(L) 20 - 50 % [facility] Blood 07/07/2025 7:51 AM CDT 07/07/2025 10:42 AM CDT Linette Cummings MD LAB BLOOD ORDERABLES Vanessa l Result [facility] [address] [facility] Department [place] [address] * Folate (07/07/2025 7:51 AM CDT) [facility] Folic acid 19.3 >=5.0 ng/mL Blood 07/07/2025 7:51 AM CDT 07/07/2025 11:[address] [facility] Vivienne Cummings MD LAB BLOOD ORDERABLES Vanessa l Result Performing Organization Address [facility]/ZIP Co de Phone Number [address] [place] [address] * Vitamin B12 (07/07/2025 7:51 AM CDT) [facility] Vitamin B12 465 230 - 1,250 pg/mL Blood 07/07/2025 7:51 AM CDT 07/07/2025 10:[address] [facility] Vivienne Cummings MD LAB BLOOD ORDERABLES Vanessa l Result Performing Organization Address [facility] de Phone Number [address] [place] [address] * (ABNORMAL) Blood smear review (07/04/2025 8:41 AM CDT) [facility] RBC morphology Present(A) Polychromasia 3-7/HPF(A) [facility] Hypochromasia 3-7/HPF(A) CERNER Anisocytosis Moderate(A) CERNER Poikilocytosis Moderate(A) [facility] Microcytes 3-7/HPF(A) [facility] Macrocytes 8-15/HPF(A) CERNER Elliptocytes 8-15/HPF(A) CERNER Platelet estimate Automated Count Confirmed [facility] Blood 07/04/2025 8:41 AM CDT 07/04/2025 10:[address] [facility] Vivienne Cummings MD LAB BLOOD ORDERABLES Vanessa l Result Performing Organization Address [facility]/ZIP Co de Phone Number [address] [place] [address] * eGFR (07/04/2025 8:41 AM CDT) [facility] eGFR >90 >=60 mL/min/1. 73 m2 [...] 8:41 AM CDT 07/04/2025 10:55 AM CDT [facility] Vivienne Cummings MD LAB BLOOD ORDERABLES Vanessa madsen Result [facility] [address] [facility] Department [place] [address] * Differential, auto (07/04/2025 8:41 AM CDT) [facility] Neutrophil abs 4.06 1.50 - 6.50 K/cumm Imm gran abs 0.01 0.00 - 0.10 K/cumm [facility] Lymphocyte abs 1.34 0.80 - 3.30 K/cumm [facility] Monocyte abs 0.52 0.20 - 0.80 K/cumm [facility] Eosinophil abs 0.13 0.00 - 0.50 K/cumm [facility] Basophil abs 0.06 0.00 - 0.10 K/cumm [facility] Neutrophil pct 66.3 % [facility] Comment: Interpretive Data Percent cell count reference ranges are not reported, since discordance with absolute values may lead to misinterpretation of CBC data. Current Interpretive Data was last revised on 2018. Imm gran pct 0.2 % [facility] Comment: Interpretive Data Percent cell count reference ranges are not reported, since discordance with absolute values may lead to misinterpretation of CBC data. Current Interpretive Data was last revised on 2018. Lymphocyte pct 21.9 % [facility] Comment: Interpretive Data Percent cell count reference ranges are not reported, since discordance with absolute values may lead to misinterpretation of CBC data. Current Interpretive Data was last revised on 2018. Monocyte pct 8.5 % [facility] Comment: Interpretive Data Percent cell count reference ranges are not reported, since discordance with absolute values may lead to misinterpretation of CBC data. Current Interpretive Data was last revised on 2018. Eosinophil pct 2.1 % [facility] Comment: Interpretive Data Percent cell count reference ranges are not reported, since discordance with absolute values may lead to misinterpretation of CBC data. Current Interpretive Data was last revised on 2018. Basophil pct 1.0 % [facility] Comment: Interpretive Data Percent cell count reference ranges are not reported, since discordance with absolute values may lead to misinterpretation of CBC data. Current Interpretive Data was last revised on 2018. Blood 07/04/2025 8:41 AM CDT 07/04/2025 10:55 AM CDT [facility] Vivienne Cummings MD LAB BLOOD ORDERABLES Vanessa madsen Result [facility] [address] [facility] Department [place] [address] * (ABNORMAL) CBC with auto differential (07/04/2025 8:41 AM CDT) WBC 6.12 3.80 - 9.90 K/cumm Hgb 8.7(L) 11.9 - 15.5 g/dL [facility] Hct 31.3(L) 35.6 - 45.5 % [facility] Plt 380 150 - 400 K/cumm [facility] MPV 10.1 9.1 - 12.3 fL [facility] RBC 4.87 3.90 - 5.20 M/cumm [facility] MCV 64.3(L) 81.3 - 96.4 fL [facility] MCH 17.9(L) 27.1 - 33.3 pg [facility] MCHC 27.8(L) 32.3 - 35.7 g/dL [facility] RDW CV 19.9(H) 11.1 - 14.9 % [facility] RDW SD 43.4 35.7 - 48.1 fL [facility] NRBC abs 0.00 0.00 - 0.01 K/cumm [facility] Blood 07/04/2025 8:41 AM CDT 07/04/2025 10:55 AM CDT Result [facility] Linette Cummings MD LAB BLOOD ORDERABLES Edit ed Result - Final Performing Organization Address [facility] de Phone Number [address] [employer] [place] [address] * Hepatitis C antibody Blood (07/04/2025 8:41 [...] L ORDERABLES Final Result Performing Organization Address [facility] de Phone Number [address] [place] [address] * Hepatitis B core antibody, total Blood (07/04/2025 8:41 AM CDT) Pathologist [facility] Hep B core IgG/IgM Nonreactive Nonreactive Comment:Testing performed by : [facility], [address], [place]., [address] Blood 07/04/2025 8:41 AM CDT 07/04/2025 1:16 PM CDT Linette Cummings MD LAB MICROBIOLOGY - [employer] L ORDERABLES Final Result Performing Organization Address [facility] de Phone Number [address] [place] [address] * Hepatitis B surface antibody (immune status) Blood (07/04/2025 8:41 AM CDT) [facility] HBsAb (immune status) Reactive Comment: Interpretive [...] HBsAb (immune status) index 13.0 mIUnits/m L [facility] Blood 07/04/2025 8:41 AM CDT 07/04/2025 10:55 AM CDT Linette Cummings MD LAB MICROBIOLOGY - [employer] L ORDERABLES Final Result Performing Organization Address [facility] Co de Phone Number [facility] [address] [place] [address] [place] [address] * Hepatitis B Surface Antigen Blood (07/04/2025 8:41 AM CDT) Pathologist [facility] HepBsAg Nonreactive Nonreactive Blood 07/04/2025 8:41 AM CDT 07/04/2025 10:55 AM CDT Linette Cummings MD LAB MICROBIOLOGY - GENERA L ORDERABLES Final Result Performing Organization Address [facility] Co de Phone Number [facility] [address] [address] * Hemoglobin A1c (07/04/2025 8:41 AM CDT) Hgb A1C 5.3 4.0 - 5.6 % Estimated Average Glucose 105 mg/dL [facility] Comment: The ADA recommends reporting an estimated Average Glucose (eAG) with all Hemoglobin A1c results using the equation derived from a study of 507 normal and diabetic adults. Minority populations were underrepresented and children were not included. (Diabetes Care 31:8786-3102, 2008). The eAG is not equivalent to a fasting glucose. Blood 07/04/2025 8:41 AM CDT 07/04/2025 10:55 AM CDT Linette Cummings MD LAB BLOOD ORDERABLES Vanessa l Result Performing Organization Address City/[facility] Co de Phone Number [id number] [address] * Lipid panel (07/04/2025 8:41 AM CDT) [...] revised on 2024. Non-HDL Cholesterol 95 mg/dL [facility] Comment: Interpretive Data Ages < or = [...] last revised on 2018. Chol/HDL ratio 3 [facility] Blood 07/04/2025 8:41 AM CDT 07/04/2025 10:55 AM CDT [facility] Vivienne Cummings MD LAB BLOOD ORDERABLES Vanessa l Result [facility] [address] [facility] Department [place] [address] * (ABNORMAL) Comprehensive metabolic panel (07/04/2025 8:41 AM CDT) Sodium 138 135 - 145 mmol/L Potassium, pl 4.3 3.3 - 4.9 mmol/L [facility] Chloride 105 97 - 110 mmol/L [facility] CO2 24 22 - 32 mmol/L [facility] Anion gap 9 2 - 15 mmol/L [facility] BUN 10 6 - 25 mg/dL [facility] Creatinine 0.64 0.60 - 1.10 mg/dL [facility] Glucose 88 70 - 199 mg/dL [facility] Comment: Interpretive Data Fasting glucose >/= 126 [...] 2022. Calcium 10.9(H) 8.5 - 10.3 mg/dL [facility] Bilirubin, total 0.5 0.1 - 1.2 mg/dL [facility] Protein, pl 7.1 6.5 - 8.5 g/dL [facility] Albumin 4.3 3.5 - 5.0 g/dL [facility] Alk phos 61 40 - 130 Units/L [facility] ALT 10 7 - 45 Units/L [facility] AST 17 10 - 45 Units/L [facility] Blood 07/04/2025 8:41 AM CDT 07/04/2025 10:55 AM CDT Result [facility] Linette Cummings MD LAB BLOOD ORDERABLES Vanessa madsen Result [facility] [address] [facility] Department [place] [address] * MAMMOGRAPHY (05/09/2025 2:10 PM CDT) Historical Provider HEALTH MAINTENANCE Final Result * PAP SMEAR (02/15/2025 4:09 PM CDT) Historical Provider HEALTH MAINTENANCE Final Result from Last 3 Months or Most Recently Relevant to Health Maintenance Insurance [facility] ACCESS CHOICE Care Teams Youth Pastor Relationship Specialty Start Date End Date Linette Cummings MD [address] [address] PCP - General Family Medicine 07/04/25
--- OUTSIDE RECORDS SUMMARY | 2025-08-25 15:47 | XMS_ITS | Encounter Summary ---
Author Organization [facility] Healthcare Address [address] [place] [address] Care Team Providers Care Unstacker Name Role Phone Linette Cummings MD Primary Care Provider [phone] Encounter Details Date Type Department Care Team (Latest Contact Info) Description 07/06/2025 Results Follow-Up [facility] Medical Group Primary Care at [address] [phone] Linette Cummings MD [address] [place] [address] [address] [place] [address] Comprehensive metabolic panel, Lipid panel, [...] w/ IBC (07/07/2025 7:51 AM CDT) Pathologist [facility] Iron 42 35 - 145 mcg/dL TIBC 421(H) 250 - 400 mcg/dL [facility] Transferrin saturation 10(L) 20 - 50 % [facility] Blood 07/07/2025 7:51 AM CDT 07/07/2025 10:42 AM CDT Linette Cummings MD LAB BLOOD ORDERABLES Vanessa l Result Performing Organization Address [facility]/ZIP Co de Phone Number [address] [place] [address] * Folate (07/07/2025 7:51 AM CDT) Pathologist [facility] Folic acid 19.3 >=5.0 ng/mL Blood 07/07/2025 7:51 AM CDT 07/07/2025 11:42 AM CDT Linette Cummings MD LAB BLOOD ORDERABLES Vanessa l Result Performing Organization Address City/[facility] Co de Phone Number [address] [place] [address] * Vitamin B12 (07/07/2025 7:51 AM CDT) Pathologist [facility] Vitamin B12 465 230 - 1,250 pg/mL Blood 07/07/2025 7:51 AM CDT 07/07/2025 10:42 AM CDT Linette Cummings MD LAB BLOOD ORDERABLES Vanessa l Result Performing Organization Address City/[facility] Co de Phone Number [address] [place] [address] documented in this encounter Visit Diagnoses Diagnosis Anemia, unspecified type- Primary documented in this encounter Care Teams Unstacker Relationship Specialty Start Date End Date Linette Cummings MD [address] [address] PCP - General Family Medicine 07/04/25 documented as of this encounter
[2025-08-25 16:05] LABS: Influenza A QL RT-PCR Negative (Negative); Influenza B QL RT-PCR Negative (Negative); RSV RNA, RT-PCR Negative (Negative); SARS-CoV-2 RNA PCR Negative (Negative)
[2025-08-25 16:57] LABS: Add Urine Microscopic? YES; Appearance Urine Turbid (Clear); Glucose Urine UA Negative (Negative); Leukocyte Esterase Ur Negative LEU/UL (Negative); Need Manual Microscopic Reviewed; Nitrate Urine Negative (Negative); Specific Grav Ur 1.039 (1.001-1.035)
[2025-08-28 11:46] LABS: BEDSIDEPREGUCG Negative (Negative)
== END 2025-08-25 18:10 | disposition home or self-care (01) ==
PROVIDERS: Emergency Medicine; Emergency Provider Emergency Medicine
DX: E83.52 Hypercalcemia (principal); R55 Syncope and collapse; R11.10 Vomiting, unspecified; Z20.822 Contact with and (suspected) exposure to COVID-19
CPT/HCPCS: 36415; 71045; 80053; 81001; 81025; 85025; 87637; 93005; 96361; 96374; 99284; J2405; J7030

== ENCOUNTER 2025-08-27 10:34 | Emergency (ER) | payer BC, SELFPAY ==
[2025-08-27] VITALS (9 sets, daily range): BP systolic 101–134; BP diastolic 58–78; PULSE 43–49; RESP 12–18; TEMP 36.6; O2SAT 97–100
--- NOTE | ~2025-08-27 | XR_ITS ---
Examination: XR chest 2V Clinical History: cp Comparison: 08/25/2025 Technique: PA and Lateral Findings: Cardiomediastinal silhouette normal size and configuration. Lungs clear. No acute bony abnormality. IMPRESSION: 1. No acute cardiopulmonary findings. Reviewed, dictated and finalized at location [facility]
--- NOTE | 2025-08-27 10:35 | ECG_ITS ---
Test Date: 2025-08-27 10:41:02 Measurements Intervals [place] Rate: 42 P: 36 AL: 121 QRS: 18 QRSD: 101 T: 30 QT: 414 QTc: 350 Interpretive Statements SINUS BRADYCARDIA Compared to ECG 08/25/2025 14:26:14 No significant changes Electronically Signed On 08-27-2025 11:10:36 [employer] by Joe Ortiz M.D.
--- NOTE | 2025-08-27 10:45 | PC.NURSE ---
Pt. states she cannot take the aspirin at this time d/t vomiting.
[2025-08-27 10:50] LABS: Hematocrit 32.6 % (37.0-47.0); Hemoglobin 9.0 g/dL (12.0-15.0); Immature Granulocyte Percent A 0.5 % (0-0.5); Lymphocytes Absolute Auto 1.58 K/mm3 (0.9-3.2); Mean Corpuscular HGB Conc 27.6 g/dl (32-36); Mean Corpuscular Hemoglobin 18.4 pg (26-34); Mean Corpuscular Volume 66.8 fl (80-100); Nucleated Red Blood Cells Absolute Auto 0.000 K/mm3 (0.0-0.012); Nucleated Red Blood Cells Perc 0.0 % (0.0-0.2); Platelet Count Result 392 k/mm3 (150-375); Red Blood Count 4.88 M/mm3 (4.2-5.4); White Blood Count 9.3 K/mm3 (4.5-10.0)
[2025-08-27] MEDS: LACTATED RINGERS 1,000 ML 999 ML IV CONT (10:57)
[2025-08-27 11:01] LABS: INR 1.1; Prothrombin Time 14.2 Seconds (11.1-14.7)
[2025-08-27 11:02] LABS: Partial Thromboplastin Time 21.7 Seconds (22.3-36.8)
[2025-08-27] MEDS: ALBUTEROL SULFATE NEB 2.5 MG/3 ML INH INHALATION (11:02)
[2025-08-27 11:06] LABS: Alanine Aminotransferase 21 U/L (6-35); Albumin Level 4.3 g/dL (3.5-5.1); Alkaline Phosphatase 50 U/L (38-126); Anion Gap 8 mmol/L (4-12); Anisocytosis 2+; Aspartate Amino Transferase 33 U/L (14-36); Bilirubin,Total 0.8 mg/dL (0.2-1.3); Blood Urea Nitrogen 13 mg/dL (7-17); Calcium 10.6 mg/dL (8.4-10.2); Carbon Dioxide 23 mmol/L (22-30); Chloride 103 mmol/L (98-107); Estimated CRCL calculation 109 ml/min; Estimated Glomerular Filt Rate > 60; Glucose 89 mg/dL (65-110); Hypochromasia 1+; Lipase 83 U/L (23-300); Magnesium 2.0 mg/dL (1.6-2.3); Potassium 3.6 mmol/L (3.4-5.0); Sodium 134 mmol/L (137-145); Total Protein 7.3 g/dL (6.3-8.2)
--- NOTE | 2025-08-27 11:06 | ED.GENADULT ---
HPI - General Adult General Chief complaint: Chest Pain Stated complaint: CP Time Seen by Provider: 08/27/25 10:41 History of Present Illness HPI narrative: 44-year-old female presenting to the emergency department for evaluation for some shortness of breath after dry heaving this morning. Patient was seen in the emergency department on Thursday for complaint of nausea and vomiting. Patient states she went home did have an additional episode of emesis but then felt fine all day Thursday. Patient reports her symptoms did return today. Patient states that she did not have any coughing episodes but was primarily just having dry heaves. Patient was also concerned because they distal symptoms of inability to take a deep breath. Patient's heart rate is in the 40s and she states that this is typical for her. Patient denies any other significant past medical history. Related Data Home Medications ?Medication ?Instructions ?Recorded ?Confirmed ?Last Taken ?Type calcium carbonate (Calcium 600) 600 mg PO DAILY 04/01/21 01/06/24 05/14/21 History ergocalciferol (vitamin D2) 1,250 1,250 mcg PO WEEKLY 04/01/21 01/06/24 05/14/21 History mcg (50,000 unit) capsule (Vitamin D2) ferrous sulfate 325 mg (65 mg 325 mg PO DAILY 04/01/21 01/06/24 05/14/21 History iron) tablet Allergies Allergy/AdvReac Type Severity Reaction Status Date / Time Penicillins Allergy Rash Verified 08/27/25 10:42 Review of Systems Review of Systems: All systems reviewed & are unremarkable except as noted in HPI and below PMFSH Past Medical History Medical History (Updated 08/27/25 @ 15:47 by Esteban King MD) Obesity Advanced maternal age (AMA) in Family History Family History (Updated 05/02/21 @ 12:41 by Trish Becerra RN) Other No pertinent family history Social History Social History Smoking status: Never smoker Second hand tobacco smoke exposure: No Substance use: never Gender identity (if verbalized by the patient): Female Spiritual care concerns: No Exam Narrative: APPEARANCE: Ill-appearing HEAD: normocephalic, atraumatic. EYES: PERRLA/EOMI, conjunctivae clear. NOSE: Normal no drainage EARS:TMS clear with good light reflex. THROAT: Pharynx clear, no exudate. NECK: Supple. No adenopathy, no masses. RESPIRATORY: Airway patent, respirations nonlabored. Clear to auscultation bilaterally, no rales, rhonchi, wheezing. CARDIOVASCULAR: Sinus Hever without murmurs rubs or gallops ABDOMINAL: Soft, nontender, nondistended, normal bowel sounds MUSCULOSKELETAL: Moves all extremities. Strength/ROM intact, No edema, No calf tenderness. NEURO: Alert. Cranial nerves II through XII intact. Good gait. Good coordination SKIN: Warm, dry. Normal Color PSYCHIATRIC: Flat affect Course Vital Signs Vital signs: Vital Signs Temperature 97.9 F 08/27/25 10:38 Pulse Rate 44 L 08/27/25 10:38 Respiratory Rate 16 08/27/25 10:38 Blood Pressure 115/64 08/27/25 10:38 Pulse Oximetry 100 08/27/25 10:38 Oxygen Delivery Room Air 08/27/25 10:38 Temperature 97.9 F 08/27/25 10:38 Pulse Rate 46 L 08/27/25 15:57 Respiratory Rate 18 08/27/25 15:57 Blood Pressure 101/58 L 08/27/25 15:57 Pulse Oximetry 97 08/27/25 15:57 Oxygen Delivery Room Air 08/27/25 10:38 Medical Decision Making MDM Narrative Medical decision making narrative: 44-year-old female presents emergency department for evaluation for chest tightness after having an episode of emesis. Patient is currently afebrile with hemoglobin of 9.0 which is similar to her baseline. INR of 1.1. No acute abnormalities her CMP patient did have negative serial troponins normal TSH. Chest x-ray shows no acute cardiopulmonary abnormality. No concern for aspiration pneumonia, patient lungs are clear to auscultation. Patient did have some improvement with Zofran had further improvement with Reglan. Patient will be provided Zofran and Reglan for home for nausea control. Patient was encouraged to have close follow-up with primary care physician. All questions concerns were addressed. Differential Diagnosis Differential Diagnosis: Dehydration, intractable nausea and vomiting, cannabinoid hyperemesis syndrome, aspiration pneumonia, bronchospasm, pneumonia, pneumothorax Vital Signs Vital Signs: Vital Signs Temperature 97.9 F 08/27/25 10:38 Pulse Rate 44 L 08/27/25 10:38 Respiratory Rate 16 08/27/25 10:38 Blood Pressure 115/64 08/27/25 10:38 Pulse Oximetry 100 08/27/25 10:38 Oxygen Delivery Room Air 08/27/25 10:38 Temperature 97.9 F 08/27/25 10:38 Pulse Rate 46 L 08/27/25 15:57 Respiratory Rate 18 08/27/25 15:57 Blood Pressure 101/58 L 08/27/25 15:57 Pulse Oximetry 97 08/27/25 15:57 Oxygen Delivery Room Air 08/27/25 10:38 Lab Data Lab results reviewed: Yes I reviewed the patient's lab results. 08/27/25 10:44 08/27/25 10:44 Labs: Lab Results 08/27/25 08/27/25 Range/Units 10:44 13:29 WBC 9.3 (4.5-10.0) K/mm3 RBC 4.88 (4.2-5.4) M/mm3 Hgb 9.0 L (12.0-15.0) g/dL Hct 32.6 L (37.0-47.0) % MCV 66.8 L (80-100) fl MCH 18.4 L (26-34) pg MCHC 27.6 L (32-36) g/dl RDW 20.9 H (11.5-14.5) % Plt Count 392 H (150-375) k/mm3 MPV 9.6 (7.4-10.4) fl Immature Gran % (Auto) 0.5 (0-0.5) % Neut % (Auto) 74.4 H (45.5-73.1) % Lymph % (Auto) 17.1 L (18.3-44.2) % [place] % (Auto) 7.0 (2.6-8.5) % Eos % (Auto) 0.2 (0-4.4) % Baso % (Auto) 0.8 (0.2-1.2) % Lymph # (Auto) 1.58 (0.9-3.2) K/mm3 [place] # (Auto) 0.7 H (0.1-0.6) K/mm3 Eos # (Auto) 0.0 (0-0.3) K/mm3 Baso # (Auto) 0.1 (0.0-0.1) K/mm3 Abs Immat Gran (auto) 0.05 H (0.00-0.031) K/mm3 Absolute Neuts (auto) 6.9 H (1.3-6.7) K/mm3 Absolute Nucleated RBC 0.000 (0.0-0.012) K/mm3 Band Neutrophils % Not Reportable Nucleated RBC % 0.0 (0.0-0.2) % Platelet Estimate Adequate (Adequate) Hypochromasia 1+ Anisocytosis 2+ Target Cells 1+ Tear Drop Cells Occasional Ovalocytes 1+ Schistocytes Occasional PT 14.2 (11.1-14.7) Seconds INR 1.1 APTT 21.7 L (22.3-36.8) Seconds Sodium 134 L (137-145) mmol/L Potassium 3.6 (3.4-5.0) mmol/L Chloride 103 (98-107) mmol/L Carbon Dioxide 23 (22-30) mmol/L Anion Gap 8 (4-12) mmol/L BUN 13 (7-17) mg/dL Creatinine 0.71 (0.7-1.0) mg/dL Estim Creat Clear Calc 109 ml/min Estimated GFR > 60 (59 - ) Glucose 89 (65-110) mg/dL Calcium 10.6 H (8.4-10.2) mg/dL Magnesium 2.0 (1.6-2.3) mg/dL Total Bilirubin 0.8 (0.2-1.3) mg/dL AST 33 (14-36) U/L ALT 21 (6-35) U/L Alkaline Phosphatase 50 (38-126) U/L Troponin I < 0.012 < 0.012 (0.000-0.034) ng/mL Total Protein 7.3 (6.3-8.2) g/dL Albumin 4.3 (3.5-5.1) g/dL Lipase 83 (23-300) U/L TSH (Reflex) 0.742 (0.465-4.68) uIU/mL Imaging Data Radiologist's impression: Impressions Chest X-Ray 08/27/25 11:56 IMPRESSION: 1. No acute cardiopulmonary findings. Discharge Plan Discharge Clinical Impression: Nausea & vomiting Patient Disposition: Home Condition: Stable Instructions: Antibiotic Form, Clear Liquid Diet (ED), Acute Nausea and Vomiting (ED) Additional Instructions: Zofran and Reglan for nausea control. Follow a clear liquid diet for the next 3-5 days. Have close follow-up with your primary care physician. If you have any worsening symptoms then please call or return to the emergency department Patient Language: Surinamese Prescriptions: New ondansetron 4 mg tablet,disintegrating 4 mg PO Q8H PRN (Reason: nausea and vomiting) Qty: 14 0RF metoclopramide HCl [Reglan] 10 mg tablet 10 mg PO Q6H PRN (Reason: nausea and vomiting) Qty: 14 0RF No Action calcium carbonate [Calcium 600] 600 mg calcium (1,500 mg) Tablet 600 mg PO DAILY ferrous sulfate 325 mg (65 mg iron) Tablet 325 mg PO DAILY ergocalciferol (vitamin D2) [Vitamin D2] 1,250 mcg (50,000 unit) Capsule 1,250 mcg PO WEEKLY Patient Comments: Takes every Thursday ibuprofen 600 mg Tablet 600 mg PO Q6H PRN (Reason: Cramping) Qty: 30 0RF ondansetron 4 mg tablet,disintegrating 4 mg PO Q4H 0 Days Qty: 10 0RF Rx Instructions: 1st dose 1-2 hr before radiation Follow-up/Referrals: suri,manjula [Other]
[2025-08-27 11:07] LABS: Ovalocytes 1+; Schistocytes Occasional; Target Cells 1+; Tear Drop Cells Occasional
[2025-08-27 11:18] LABS: Troponin I < 0.012 ng/mL (0.000-0.034)
[2025-08-27 11:37] LABS: Thyroid Stimulating Hormone Reflex 0.742 uIU/mL (0.465-4.68)
--- NOTE | 2025-08-27 11:53 | PC.NURSE ---
Pt. requesting antiemetic. Dr. King notified.
[2025-08-27] MEDS: ONDANSETRON INJ 4 MG/2 ML VIAL IV PUSH (12:00)
--- NOTE | 2025-08-27 13:20 | PC.NURSE ---
Pt. able to ambulate to the bathroom independently. Gait steady.
[2025-08-27 14:00] LABS: Troponin I < 0.012 ng/mL (0.000-0.034)
[2025-08-27] MEDS: METOCLOPRAMIDE HCL INJ 10 MG/2 ML VIAL IV PUSH (14:39)
== END 2025-08-27 16:00 | disposition home or self-care (01) ==
PROVIDERS: Emergency Provider Emergency Medicine
DX: R11.2 Nausea with vomiting, unspecified (principal)
CPT/HCPCS: 36415; 71046; 80053; 83690; 83735; 84443; 84484; 85025; 85610; 85730; 93005; 94640; 96361; 96374; 96375; 99284; J2405; J2765; J7120